=== PATIENT | male | born 1960 | race Caucasian/White ===

== ENCOUNTER 2023-10-26 22:40 | Inpatient (IN) | payer MEDICARE, OTHER, SELFPAY ==
[2023-10-26 20:24] VITALS: BP 110/70
[2023-10-26 20:46] LABS: % Basophils 0.2 % (0-2); % Eosinophils 0.2 % (0-6); % Immature Granulocytes 0.6 % (0-0.5); % Lymphocytes 16.5 % (20.5-51.1); % Monocytes 7.9 % (1.7-9.3); % Neutrophils 74.6 % (42.2-75.2); Absolute Immature Granulocytes 0.1 10^3/uL (0-0.05); Absolute Lymphocytes 1.6 10^3/uL (1.2-3.4); Absolute Monocytes 0.8 10^3/uL (0.1-0.6); Hematocrit 27.2 % (39.0-52.0); Hemoglobin 9.7 g/dL (13.0-18.0); Mean Corp Hgb Conc. 35.7 g/dL (33.0-37.0); Mean Corpuscular Hgb 31.9 pg (27.0-31.0); Mean Corpuscular Volume 89.5 fL (80.0-94.0); Mean Platelet Volume 10.6 fL (7.4-10.4); Nucleated Red Blood Cells % 0 % (-); Platelet Count 204 10^3/uL (130-400); Red Blood Cell Count 3.04 10^6/uL (4.70-6.10); Red Cell Dist. Width 12.5 % (11.5-14.5); White Blood Cell Count 9.4 10^3/uL (4.8-10.8)
[2023-10-26 21:22] LABS: ALT (SGPT) 37 U/L (0-50); AST (SGOT) 51 U/L (17-59); Albumin 3.7 g/dl (3.5-5.0); Alcohol < 10 mg/dl; Alkaline Phosphatase 68 U/L (38-126); Blood Urea Nitrogen 20 mg/dl (9-20); Carbon Dioxide 27 mmol/L (22-30); Chloride 84 mmol/L (98-107); Glucose 168 mg/dl (70-99); Lipase 145 U/L (23-300); Sodium 116 mmol/L (135-145); Total Bilirubin 0.8 mg/dl (0.2-1.3); Total Protein 6.1 g/dl (6.3-8.2); eGFR > 60.00
[2023-10-26 21:46] VITALS: BP 113/72
[2023-10-26 21:50] VITALS: BMI 19.9
[2023-10-26 22:02] VITALS: BP 88/65
[2023-10-26 22:12] VITALS: BP 126/92
--- NOTE | 2023-10-26 22:16 | EDRN ---
At approx. 2210 this RN was called into the room by the patients visitor. The patient was pale, diaphoretic, and had his back arched. The patient was unresponsive. Dr. Watt called to the bedside and was immediately at the stretcher side. The
patient was placed supine and the patient started to arouse. The patient was placed on 6L N/C. The patient was ST on the monitor at the time of the event. The patients pulse ox is 99% on 6L N/C.
--- NOTE | 2023-10-26 22:19 | HPS.HSE ---
Family Physician
-
Family Physician:
Chief Complaint
-
fall, LOC, N/V
History of Present Illness
63M HX hyponatremia, ETOH use disorder pw N/V last 3 days. Recently he cannot keep the usual beer down.
He had fall last night and hit head, hit Rt elbow and lower back - he reports LOC . He is on on Eliquis
S/p dental implants on 10/22
He drinks ETOH daily
At ER Witnessed brief Sz like activity for x 1 min @ ER described as getting stiff and rollung both eyes up when he sit up with assistance s/p Ativan at ER
Reports vague HX sz
NEG HCT for acute process
Denies dirrhea
Medical History
Past Medical History
Past Medical History: Reports Other
Additional Past Medical History:
Acute kidney injury
Acute postoperative acute blood loss anemia
Essential hypertension
Tobacco abuse disorder
Insomnia
Gastroesophageal reflux disease
Past Surgical History: Reports Other
Additional Past Surgical History:
History of open thrombectomy of right common femoral artery, right posterior tibial artery, and bypass graft 07/10/20
History of Right superficial femoral artery occlusion s/p right fem-popliteal bypass 06/29/20
History of right superficial femoral artery occlusion status post lysis in 2017
Hypokalemia
Social History
Tobacco: Smoker (Smoker (currently at 1/2 ppd))
Alcohol: Daily (3 beers daily, sometimes more))
Personal: Partner
Living: With Family
Family History
Family History: Other (Cancer (Mom-Lung ) and Other (Dad-stroke)
Allergies / Home Medications
Allergies reflects when Allergies were last updated in [facility].
Home Medications with original date entered in [facility]
Allergy/Medication List:
Allergies
Allergy/AdvReac Type Severity Reaction Status Date / Time
pollen extracts Allergy seasonal Verified 11/07/22 16:21
allergies
Home Medications
apixaban 5 mg tablet (Eliquis) 5 mg PO BID Blood clot prevention/tx #60 tabs 09/15/22
atorvastatin 40 mg tablet 40 mg PO QPM #30 tabs 09/15/22
diltiazem HCl 180 mg capsule,24 hr,extended release 180 mg PO DAILY Arrhythmia #30 caps 09/15/22
valsartan 80 mg tablet 80 mg PO BID #60 tabs 09/15/22
acetaminophen 325 mg tablet 325 mg PO Q4HPRN PRN mild pain/CAMPOS/temp> 100.4F 02/05/23
clotrimazole 1 % topical cream 1 applic topical BID 02/05/23
sodium chloride 1,000 mg soluble tablet 1,000 mg PO BID 02/05/23
triamcinolone acetonide-l.s.b. 0.1 % topical cream 1 applic topical BID 02/05/23
cyclobenzaprine 10 mg tablet 5 mg PO HS #30 tabs 02/13/23
Review of Systems
-
Constitutional: Reports No Symptoms
EENT: Reports No Symptoms
Respiratory: Reports No Symptoms
Cardiac: Reports No Symptoms
Abdomen/GI: Reports See HPI
: Reports No Symptoms
Musculoskeletal: Reports No Symptoms
Skin: Reports No Symptoms
Neurological: Reports See HPI
Endocrine: Reports No Symptoms
Hematologic/Lymphatic: Reports No Symptoms
Psych: Reports No Symptoms
Physical Exam
Vital Signs
Vital Signs
Pulse Resp BP Pulse Ox
109 18 113/72 98
10/26/23 21:46 10/26/23 20:24 10/26/23 21:46 10/26/23 20:24
Physical Exam
General: No Apparent Distress, Conversant and Other (unkempt )
HEENT: NormoCephalic, Anicteric and Moist mucous membranes
Respiratory: Clear; No Wheezes, Rales or Rhonchi
Cardiac: S1/S2 and Regular Rhythm; No Bradycardia, Tachycardia or Murmur
GI: Soft, Non Tender and Non Distended
Rectal: Deferred by Provider
Genito-urinary: Deferred by me
Musculoskeletal: Clubbing, No Clubbing, No Cyanosis and No Edema
Skin: Other (Echimoses on Rt elbow )
Neuro: Awake, Alert, AO x 3, Nonfocal/grossly intact and DTR's Intact & Symmetrical
Psych: Calm
Laboratory Results
-
10/26/23 20:38
10/26/23 20:38
Laboratory Results
Total Bilirubin 0.8 mg/dl (0.2-1.3) 10/26/23 20:38
AST 51 U/L (17-59) 10/26/23 20:38
ALT 37 U/L (0-50) 10/26/23 20:38
Alkaline Phosphatase 68 U/L (38-126) 10/26/23 20:38
Lipase 145 U/L (23-300) 10/26/23 20:38
Data Reviewed
-
CT Scan: Report Reviewed by me
Lab Data: Labs Reviewed by me
Old Records: Reviewed
Impression/Plan
-
Reviewed VS: Mild tachycardic 110 borderline hypotension 113/70
Data
nl WCC
Hgb 9.7
Na 116 - prior Na 127- 134
K 3.0
Cl 84
CO2 27
ETOH < 10
EKG report
SINUS TACHYCARDIA
NONSPECIFIC T WAVE ABNORMALITY
ABNORMAL ECG
HCT
1. No CT evidence for acute intracranial hemorrhage, calvarial fracture, or scalp soft tissue hematoma.
2. Moderate bilateral frontal and parietal lobe volume loss.
3. Mild white matter leukoaraiosis in both cerebral hemispheres.
4. 4.7 mm chronic lacunar infarct in the left thalamus.
Last hospitalist admission: 08/26/22 - 09/05/22 Primary Dxs:
- Acute on chronic severe Right foot infection with right foot necrotizing nonhealing ulcer due to peripheral arterial disease
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
- Acute on chronic hyponatremia
ASSESSMENT & PLAN
Severe symptomatic hyponatremia - corrected Na 117 for BG 168
Hypochloremic + severe hypokalemia + Normal renal function
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
- 3% Hypertonic saline @ 30cc/hr per Renal
- s/p IV KCL 40 x 1
- Pending Ur Osm, Ur Na
- FR 40 oz
- on UTILITY AGENT Na Cl tabs
- Trend Na q3hr
- check ortho VSS
- Renal consulted
Witnessed brief Sz like activity for x 1 min @ ER - RN described as getting very stiff and rolling both eyes up when he sit up with assistance - s/p Ativan at ER
Partial complex Sz ?
Reports vague HX sz per patient
Diff etiology- Symptomatic hyponatremia vs acute ETOH WDS
- NEG HCT for acute process
- s/p IV Ativan 1 mg now
- correct Na with 3% Hypertonic saline @ 30cc/hr per Renal
- Neuro consult
At risk for ETOH WDS
ETOH use disorder
- current ETOH < 10 - at risk for ETOH WDS
- Start ETOH WD protocol with
- fall precautions
- Psych consult
Acute N/V DDx: ETOH ralated Gastritis vs. Viral gastritis
- IV PPI
- Anti emetics
Low back pain s/p fall
Ecchymoses on Rt elbow s/p fall
Fall and LOC at home - syncope vs Sz vs Postural hypotension
- XR Lx spine
- XR Rt elbow
- TLM monitor
- fall precaution
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
Essential HTN: cont valsartan/diltiazem
Tobacco abuse disorder: Counseled on smoking cessation
Insomnia: cont melatonin, Benadryl, trazodone
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
HX Right SFA occlusion right fem-popliteal bypass 06/29/20
HX right SFA occlusion status post lysis in 2017
GERD: cont PPI
DVT Px: Eliquis
Code: Full code
IMU
--- NOTE | 2023-10-26 22:23 | EDRN ---
The patient is now awake, alert, and oriented. Seizure pads are in place.
--- NOTE | 2023-10-26 22:23 | ED.GENMED ---
History of Present Illness
General
Chief Complaint: Abdominal Symptoms
Source: patient
Exam Limitations: none
Time Seen by Provider: 10/26/23 21:40
Travel History
Have you had any contact with someone who has COVID-19?: No
Do you have any symptoms of coronavirus? Fever > 100 degrees, chills, cough, shortness of breath, sore throat, loss of taste or smell, muscle aches, or headache?: No
History of Present Illness
History of Present Illness:
Patient not feeling well for days. Nausea vomiting. Struck his head yesterday. Just generally not feeling well. Last drank 3 days ago. Drinks 6 beers a day. Also hit his right lateral ribs complaining of pain at the site
Past History
Past History
ED Past Medical History: GERD, Hypercholesterolemia and Other (PAD)
ED Past Surgical History: Other (vascular surgery RLE)
Social History
Tobacco: Smoker
Alcohol: Daily
Phy Exam
Physical Exam
Physical Exam:
GENERAL: Alert and oriented. Mild hyperventilation. Somewhat agitated.
EYE: Orbits normal.
NECK: Supple, nontender
CARDIAC: Regular rate and rhythm without any obvious murmurs.
LUNGS: Clear breath sounds,normal. Tenderness over the right lateral ribs. No crepitus.
ABDOMEN: Soft, without focal tenderness or distention
NEUROLOGICAL: Alert and oriented , grossly non-focal
SKIN: Warm and dry, multiple areas of ecchymosis to the extremities
MUSCULOSKELETAL: No edema,no deformity.Good color. Right BKA
PSYCH: Normal and appropriate interaction. Anxious
Course
Orders/Labs/Results
Orders:
Orders
10/26/23 20:30
CT Head W/o Iv Contrast Urgent
Comment:
Reason For Exam: fall yesterday, head strike, Loc, on eliquis
10/26/23 20:38
Alcohol Urgent
Complete Blood Count/With Diff Urgent
Comprehensive Metabolic Panel Urgent
Lipase Urgent
Magnesium Urgent
Comment: ADD ON
10/26/23 21:29
Electrocardiogram (*1) Urgent
Reason for Study: Tachycardia
EKG- Treatment ONCE
10/26/23 21:56
Add On- LAB Urgent
Tests Added?: magnesium
10/26/23 22:00
3% Sodium Chloride 250 ml [Sodium Chloride 3%] 250 ml IV ONCE
10/26/23 22:01
Urinalysis Reflex To Culture Urgent
Urine Osmolality Random [Osmolality, Random Urine] Urgent
Urine Sodium Urgent
10/26/23 22:[address] Non Medication Order As Directed
Physician Order: change 3% NSS rate to 20cc/hour
10/26/23 22:08
Potassium Chloride [KCl] 40 meq 0.9% Sodium Chloride 250 ml [Nss] 250 ml IV NOW
10/26/23 22:14
CT Chest/abd/pel Wo Iv Cont Urgent
Reason For Exam: trauma. rib pain. anticoagulated
10/26/23 22:[address] Non Medication Order As Directed
Physician Order: 3%nss to 30/cc/hour
10/26/23 22:23
Lorazepam [Ativan] 1 mg IV NOW STA
10/26/23 22:26
Admit/Transfer Patient As Directed
Co-Sign Provider:
Level of Care: Inpatient admission
Assign to:: IMU- Intermediate Care
Physician / Group: [email or web address]
Diagnosis: symtomatic hyponatremia, Fall, syncope, New onset Sz, at risk for ETOH WDS,
Reason for Hospitalization: symtomatic hyponatremia, Fall, syncope, New onset Sz, at risk for ETOH WDS, N/V
Expected length of stay greater than two midnights?: Yes
ELOS- Estimated Length of Stay in days: 7
I certify the patient meets the requirements for IP care: Yes
10/26/23 22:35
Code Status As Directed
Resuscitation Status: Full Code
Abnormal Lab Results
10/26/23
20:38
RBC 3.04 L 10^6/uL
(4.70-6.10)
Hgb 9.7 L g/dL
(13.0-18.0)
Hct 27.2 L %
(39.0-52.0)
MCH 31.9 H pg
(27.0-31.0)
MPV 10.6 H fL
(7.4-10.4)
Abs Immat Gran (auto) 0.1 H 10^3/uL
(0-0.05)
Absolute Neuts (auto) 7.0 H 10^3/uL
(1.4-6.5)
Absolute Monos (auto) 0.8 H 10^3/uL
(0.1-0.6)
Immature Gran % 0.6 H %
(0-0.5)
Lymphocytes % 16.5 L %
(20.5-51.1)
Sodium 116 L* mmol/L
(135-145)
Potassium 3.0 L mmol/L
(3.5-5.1)
Chloride 84 L mmol/L
(98-107)
Creatinine 0.6 L mg/dL
(0.7-1.3)
Glucose 168 H mg/dl
(70-99)
Total Protein 6.1 L g/dl
(6.3-8.2)
10/26/23 20:38
10/26/23 20:38
Vital Signs
Initial and Last Documented VS:
Initial Vital Signs
Pulse Resp BP Pulse Ox
102 18 110/70 98
10/26/23 20:24 10/26/23 20:24 10/26/23 20:24 10/26/23 20:24
Last Documented Vital Signs
Pulse Resp BP Pulse Ox
107 17 90/56 100
10/27/23 00:15 10/27/23 00:15 10/27/23 00:12 10/27/23 00:15
*Critical Care Note
Total Time (30-74mins, 75-104mins- exclusive of procedures): 40
Update Note
Update Note:
2225.... Patient had a brief seizure. Mildly postictal. Discussed again with nephrology. Increase the hypertonic saline to 30 cc/h. Patient could have a component of alcohol withdrawal we will give a milligram of Ativan. Discussed with
neurology also. CT scans pending for the rib trauma. Doubt acute trauma issue but with anticoagulation will check this off the list
0035... Blood pressure remains mildly low although patient appears improved. Patient aware of nodule and need for follow-up
ED Attending Note
-
Portions of this chart may have been created with voice recognition software.� Occasional wrong word or��sound alike� substitutions may have occurred due to the inherent limitations of voice recognition software.
Discharge Plan
Departure
Patient Disposition: Admit
Date of Disposition: 10/26/23
Time of Disposition: 22:04
Presentation/result/management discussed w/ accepting MD/DO: Hospitalist
Discharge Problem:
Symptomatic hyponatremia, Seizure secondary to hyponatremia/alcoho, Right rib fracture, anemia, Duodenitis, Pneumonitis
Interventions
Interventions:
*Risk Screen - Suicide Last Done: 10/26/23 20:27
*General Assessment Last Done: 10/26/23 20:24
*Neglect/Abuse Screening Last Done: 10/26/23 20:24
ED- Fall Risk Assessment Last Done: 10/26/23 22:02
*ED COVID-19 Vaccine History Last Done: 10/26/23 21:55
LV-Mxdjpk-Lqjaridzcq Assessment Last Done: 10/26/23 23:23
[2023-10-26] MEDS: SODIUM CHLORIDE 3% 250 IV (22:24)
[2023-10-26] MEDS: KCL 270 MEQ IV (22:26)
[2023-10-26 22:30] VITALS: BP 126/92
[2023-10-26] MEDS: ATIVAN 1 MG IV (22:30)
--- NOTE | 2023-10-26 22:31 | EDRN ---
This RN spoke with the patients visitor (Meliza). She stated 'I was helping him sit up and that when he all of a sudden stopped talking.' Dr. Watt notified.
[2023-10-26 22:49] LABS: Magnesium 1.9 mg/dl (1.6-2.3)
[2023-10-26 23:00] VITALS: BP 110/55
[2023-10-27] VITALS (20 sets, daily range): BP systolic 78–125; BP diastolic 49–82; BMI 19.4
[2023-10-27] MEDS: THIAMINE INJECTION 200 MG IV ×4 (02:34→23:42)
[2023-10-27] MEDS: ATIVAN 1 MG IV (02:35)
[2023-10-27] MEDS: NSS (PRESERVATIVE FREE) 0.5 ML IV (02:35)
[2023-10-27 03:24] LABS: Hematocrit 22.3 % (39.0-52.0); Hemoglobin 8.2 g/dL (13.0-18.0); Mean Corp Hgb Conc. 36.8 g/dL (33.0-37.0); Mean Corpuscular Hgb 32.4 pg (27.0-31.0); Mean Corpuscular Volume 88.1 fL (80.0-94.0); Mean Platelet Volume 10.7 fL (7.4-10.4); Platelet Count 190 10^3/uL (130-400); Red Blood Cell Count 2.53 10^6/uL (4.70-6.10); Red Cell Dist. Width 12.6 % (11.5-14.5); White Blood Cell Count 8.5 10^3/uL (4.8-10.8)
[2023-10-27 03:40] LABS: Blood Urea Nitrogen 18 mg/dl (9-20); Calcium 8.5 mg/dl (8.4-10.2); Carbon Dioxide 27 mmol/L (22-30); Chloride 89 mmol/L (98-107); Estimated Creatinine Clearance 91 ml/min; Glucose 133 mg/dl (70-99); Potassium 3.7 mmol/L (3.5-5.1); Sodium 122 mmol/L (135-145); eGFR > 60.00
--- NOTE | 2023-10-27 03:43 | PTCARENOTE ---
Pt received from ED, on stretcher, approx 02:20. Ox3, restless, c/o of lower back pain--some relief with repositioning. SR-Sinus tach, low 100s. Radial pulses palpable. RA, shallow respirations, diminished t/o. C/O intermittent nausea, no episodes
of vomiting. No urine noted at this time. Scattered bruising.
Receiving 3% saline, Na increased from 116 to 122. Per Nephrology, hold 3%. Repeat labs ordered.
[2023-10-27 04:15] LABS: TSH 1.74 uIU/ml (0.47-4.68)
[2023-10-27] MEDS: MORPHINE SULFATE 2 MG IV ×2 (06:01→12:44)
--- NOTE | 2023-10-27 06:37 | W.PN.HOSP.TC ---
Today's Communication/Plan
-
cont MSAS protocol
Hyponatremia mgmt as per Nephro
Pulm Psych eval
follow up MRI head and EEG
hold Eliquis for now pending MRI head results.
Assessment / Plan
Assessment / Plan
Physical Exam
General: No Apparent Distress, Conversant
HEENT: NormoCephalic, Anicteric and Moist mucous membranes
Respiratory: Clear; No Wheezes, Rales or Rhonchi
Cardiac: S1/S2 and Regular Rhythm
GI: Soft, Non Tender and Non Distended
Genito-urinary: [place] condom cath in place
Musculoskeletal: s/p RLE BKA
Skin: Ecchymosis Rt elbow numerous small excoriations upper ext's
Neuro: Awake Alert Conversant
Psych: Calm
Severe symptomatic hyponatremia - corrected Na 117 for BG 168
Hypochloremic + severe hypokalemia + Normal renal function
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
- 3%� Hypertonic saline� @ 30cc/hr per Renal
- Potassium repleted
- Ur Osm, Ur Na noted
- FR� 40 oz
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
- Trend Na q4hr
- monitor ortho VSS
- Renal consult appreciated
Witnessed brief Sz� like activity for x 1 min @ ER - RN� described as getting very stiff and rolling both eyes up when he sit up with assistance - s/p Ativan at ER
Partial complex Sz ?
Reports� vague HX sz per patient
Diff etiology- Symptomatic hyponatremia vs acute ETOH WDS
- NEG HCT for acute process
- resolved with prn IV Ativan
- correct Na� with 3%� Hypertonic saline� @ 30cc/hr per Renal
- Neuro consult appreciated Aspirin 81 mg daily pending MRI results, Last dose of Eliquis 10/26 morning since placed on hold, EEG pending
At risk for ETOH WDS
ETOH use disorder
-MSAS protocol
- fall precautions
- Psych consult requested
Acute N/V� DDx: ETOH ralated� Gastritis vs. Viral gastritis
CT abd/pelvis 2nd portion duodenum inflammation suggestive Peptic Ulcer Disease likely 2/2 alcohol use
-PPI BID started
Low back pain s/p fall
Ecchymoses on Rt elbow s/p fall
Fall and LOC at home - syncope vs Sz vs Postural hypotension
- XR Lx spine appreciated no acute fracture
- XR Rt elbow appreciated no acute fracture
- CT chest appreciated Acute nondisplaced fracture of the right lateral 10th rib
- fall precaution
CT chest appreciated
-2.9 mm solid pulmonary nodule in the right lower lobe, [address] recommended
-�Multiple moderate-sized regions of ground-glass opacity in the left upper and lower lobes and small number of ground-glass opacities in the right lower lobe, unclear significance. Pulm eval requested.
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
� Essential HTN: cont valsartan/diltiazem
� Tobacco abuse disorder: Counseled on smoking cessation
� Insomnia: cont melatonin, Benadryl, trazodone
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
� HX right SFA occlusion status post lysis in 2017
� GERD: cont PPI
DVT Px: Eliquis placed on hold for MRI as per Neuro above, last dose 10/26 AM, depending on MRI results will determine appropriate dvt ppx regimen
Code: Full code
IMU
discussed with patient and his sister Yesy
I spent a total of 60 minutes with the patient or on the floor. More than 50% of this time involved counseling and coordination of care.
Anticipated Discharge: > 48 hours
Subjective/Interval History
-
Date of Service: October 27, 2023
No acute distress resting comfortably in bed. Reports chronic back pain improved from last night. Denies headache nausea.
Objective Data
-
Labs:
Laboratory Results
10/26/23 10/27/23 10/27/23
20:38 03:01 06:18
WBC 9.4 8.5
Hgb 9.7 L 8.2 L
Hct 27.2 L 22.3 L
Plt Count 204 190
Sodium 116 L* 122 L Pending
Potassium 3.0 L 3.7 Pending
Chloride 84 L 89 L Pending
Carbon Dioxide 27 27 Pending
BUN 20 18 Pending
Creatinine 0.6 L 0.5 L Pending
Glucose 168 H 133 H Pending
Calcium 9.0 8.5 Pending
Total Bilirubin 0.8
AST 51
ALT 37
Alkaline Phosphatase 68
10/27/23 10/27/23 10/27/23
10:00 14:00 18:00
WBC
Hgb
Hct
Plt Count
Sodium Pending Pending Pending
Potassium Pending Pending Pending
Chloride Pending Pending Pending
Carbon Dioxide Pending Pending Pending
BUN Pending Pending Pending
Creatinine Pending Pending Pending
Glucose Pending Pending Pending
Calcium Pending Pending Pending
Total Bilirubin
AST
ALT
Alkaline Phosphatase
10/27/23
22:00
WBC
Hgb
Hct
Plt Count
Sodium Pending
Potassium Pending
Chloride Pending
Carbon Dioxide Pending
BUN Pending
Creatinine Pending
Glucose Pending
Calcium Pending
Total Bilirubin
AST
ALT
Alkaline Phosphatase
Vital Signs:
Vital Signs
Pulse Resp BP Pulse Ox
90 18 105/73 95
10/27/23 05:30 10/27/23 05:30 10/27/23 05:00 10/27/23 05:28
--- NOTE | 2023-10-27 06:56 | CON.NEURO ---
Consultation
Order
Date of Consultation: 10/27/23
Reason for Consult: Seizure
CC: hiccup
HPI: This is a 63-year-old RH man who presented to [facility] on October 26, 2023 with malaise. Mr. Cash was witnessed to have 1 minute seizure described as getting stiff and rolling both eyes up when he sit up with assistance. ER
MAR: Lorazepam 10/26/23 22:23.
According to the patient he sustained an unwitnessed fall with no loss of consciousness after he lost his balance following getting up from seated position on 10/25/2023. He has been off Eliquis due to dental surgery that he had a week ago. No
reports of headaches, history of prior seizures.
ER VS:110/70-85/63, 102-109, afebrile; BMI-19.
EKG-sinus tachy, QTc Int : 484 ms.
PDMP:none
Labs: Sodium�116, glucose�168, hemoglobin 9.7�8.2, normal WBCs, ETOH�negative, Mg 1.9
CT head-moderate bilateral frontal and parietal lobe volume loss; mild white matter leukoaraiosis in both cerebral hemispheres; 4.7 mm chronic lacunar infarct in the left thalamus.
CT chest/abdomen-multiple moderate-sized regions of ground-glass opacity in the left upper and lower lobes and small number of ground-glass opacities in the right lower lobe. Acute nondisplaced fracture of the right lateral 10th rib.
PMH: PA A-Fib, RLL pulmonary nodule, PAD, ADH, DLP, HTN, BPH, GERD, PUD, hepatic steatosis, nicotine/ETOH addiction
PSH:femoral popliteal bypass, right transtibial amputation;bilateral inguinal hernia repair
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
All: NKDA
ROS:Constitutional: Positive for fever
HENT: Negative for ear pain, hearing loss, tinnitus and trouble swallowing.
Eyes: Negative. Negative for photophobia, pain and visual disturbance.
Respiratory: Negative for cough, choking and shortness of breath.
Cardiovascular: Negative for chest pain, palpitations and leg swelling.
Gastrointestinal: Positive for hiccups
Endocrine: Negative. Negative for cold intolerance.
Genitourinary: Positive for urinary urgency
Musculoskeletal: Positive for right sided rib pain
Skin: Negative for rash.
Allergic/Immunologic: Negative. Negative for immunocompromised state.
Neurological: Negative for dizziness, tremors, seizures, speech difficulty, numbness and headaches.
Psychiatric/Behavioral: Negative for behavioral problems, confusion and hallucinations.
General: Well developed. In moderate distress due to rib pain and constant hiccups
Cardio: Regular rate and rhythm without murmur. Extremities are without cyanosis or edema.
Neuro:
Mental Status: Alert, oriented to person, place, and date. Normal attention and recall. Good fund of knowledge. Follows complex requests across the midline. Comprehension, naming, and repetition intact.
Cranial Nerves: Pupils are equally round and reactive to light. EOMs full. Visual gregory full to confrontation. No ptosis. No nystagmus. V1-V3 intact to light touch and pinprick bilaterally, symmetric. Face symmetric. Normal hearing AU. The
palate elevated well. SCMs and traps 5/5. Tongue midline. No dysarthria.
Motor: Normal bulk and tone. No pronator or arm drift. Strength 5/5 throughout(R BKA)
Reflexes: Limited exam due to patient's distress
Sensory: Limited exam due to patient's distress
Coordination: No dysmetria or tremor.
Gait: deferred
Assessment and Plan:
I. Symptomatic seizure
II. Severe hyponatremia
III. Chronic left thalamic infarcts
IV. ETOH addiction
V. PA AFib
. Hiccups
VII. Recent dental surgery
-Seizure precautions
-CIWA protocol
-ASA 81mg QD. Plan to restart Eliquis pending brain MRI results
-Baclofen 5-10 mg TID for hiccups if physical maneuvers as Valsalva maneuver, breath holding for 5 to 10 seconds, pressing gently but firmly on the eyeballs, sipping on or gargling with very cold water are not beneficial
-Avoid cerebral hypoperfusion
-Please check CK, urinalysis, urine tox, TFTs, ESR, CRP, blood cx
-DVT prophylaxis
I personally reviewed all radiology and labs along with past medical records pertinent to current medical problems. Total time spent in patient care is 60 minutes.
Thank you for allowing us to participate in the care of this patient. We will continue to follow. Please do not hesitate to contact us with any questions or concerns.
Subjective/Objective
Subjective Data
Date of Service: October 27, 2023
Objective Data
Vital Signs
Pulse Resp BP Pulse Ox
90 18 105/73 95
10/27/23 05:30 10/27/23 05:30 10/27/23 05:00 10/27/23 05:28
Lab Results
10/27/23 03:01
Sodium 122 mmol/L (135-145) L 10/27/23 03:01
Potassium 3.7 mmol/L (3.5-5.1) 10/27/23 03:01
BUN 18 mg/dl (9-20) 10/27/23 03:01
Glucose 133 mg/dl (70-99) H 10/27/23 03:01
Calcium 8.5 mg/dl (8.4-10.2) 10/27/23 03:01
Patient Allergies
pollen extracts Allergy (Verified 11/07/22 16:21)
seasonal allergies
Medications
-
Active Medications
Generic Name Dose Route Start Last Admin
Trade Name Freq PRN Reason Stop Dose Admin
Amoxicillin/Clavulanate Potassium 1 tablet 10/27/23 08:00
Amoxicillin (875 Mg)/Clavulanate (125 Mg) Tablet PO
Q12 CRISTIAN
Apixaban 5 mg 10/27/23 08:00
Apixaban (Eliquis) 5 Mg Tablet PO 11/24/23 07:59
BID CRISTIAN
Atorvastatin Calcium 40 mg 10/27/23 18:00
Atorvastatin (Lipitor) 40 Mg Tablet PO 11/24/23 17:59
QPM CRISTIAN
Diltiazem HCl 180 mg 10/27/23 08:00
Diltiazem 180 Mg Extended Release (24 H) Capsule PO 11/24/23 07:59
DAILY CRISTIAN
Folic Acid 1 mg 10/27/23 08:00
Folic Acid 1 Mg Tablet PO 11/24/23 07:59
DAILY CRISTIAN
Folic Acid 1 mg/ Sodium 50.2 mls @ 200.8 mls/hr 10/27/23 01:35
Chloride IV 11/24/23 01:34
DAILYPRN PRN
if NPO
Lorazepam 1 mg 10/27/23 01:35
Lorazepam 1 Mg Tablet PO 11/24/23 01:34
Q2HPRN PRN
MSAS 5-7
Lorazepam 1 mg 10/27/23 01:35 10/27/23 02:35
Lorazepam 2 Mg/Ml Vial IV 11/24/23 01:34 1 mg
Q1HPRN PRN Administration
MSAS 8-11
Lorazepam 2 mg 10/27/23 01:35
Lorazepam 2 Mg/Ml Vial IV 11/24/23 01:34
Q1HPRN PRN
MSAS > 11
Morphine Sulfate 2 mg 10/27/23 05:40 10/27/23 06:01
Morphine 2 Mg/Ml Syringe IV 11/10/23 05:39 2 mg
Q4HPRN PRN Administration
severe pain
Sodium Chloride 0 flush 10/27/23 01:00
Sodium Chloride 0.9% (Flush) Syringe IV 11/24/23 00:59
PER PROTOCOL CRISTIAN
Sodium Chloride 1 gram 10/27/23 08:00
Sodium Chloride 1 Gram Tablet PO 11/24/23 07:59
BID CRISTIAN
Sodium Chloride 0 ml 10/27/23 01:35 10/27/23 02:35
Sodium Chloride 0.9% (Preservative Free) 10 Ml Vial IV 11/24/23 01:34 0.5 ml
PRN PRN Administration
To dilute IV Ativan
Protocol
Thiamine HCl 200 mg 10/27/23 01:35 10/27/23 02:34
Thiamine (100 Mg/Ml) 2 Ml Vial IV 10/29/23 16:01 200 mg
Q8 CRISTIAN Administration
Thiamine HCl 100 mg 10/30/23 08:00
Thiamine 100 Mg Tablet PO 11/27/23 07:59
BID CRISTIAN
Valsartan 80 mg 10/27/23 08:00
Valsartan 80 Mg Tablet PO 11/24/23 07:59
BID CRISTIAN
Home Medications
Medication Instructions Recorded
apixaban 5 mg tablet (Eliquis) 5 mg PO BID Blood clot 09/15/22
prevention/tx #60 tabs
atorvastatin 40 mg tablet 40 mg PO QPM #30 tabs 09/15/22
diltiazem HCl 180 mg capsule,24 180 mg PO DAILY Arrhythmia #30 caps 09/15/22
hr,extended release
valsartan 80 mg tablet 80 mg PO BID #60 tabs 09/15/22
acetaminophen 325 mg tablet 325 mg PO Q4HPRN PRN mild 02/05/23
pain/CAMPOS/temp> 100.4F
clotrimazole 1 % topical cream 1 applic topical BID 02/05/23
sodium chloride 1,000 mg soluble 1,000 mg PO BID 02/05/23
tablet
triamcinolone acetonide-l.s.b. 0.1 1 applic topical BID 02/05/23
% topical cream
cyclobenzaprine 10 mg tablet 5 mg PO HS #30 tabs 02/13/23
amoxicillin 875 mg-potassium 1 tab PO BID 10/27/23
clavulanate 125 mg tablet
Vital Signs and Labs
-
Vital Signs and Labs:
Vital Signs
Pulse Resp BP Pulse Ox
90 18 105/73 95
10/27/23 05:30 10/27/23 05:30 10/27/23 05:00 10/27/23 05:28
Lab Results
10/27/23 03:01
Sodium 124 mmol/L (135-145) L 10/27/23 06:18
Potassium 3.7 mmol/L (3.5-5.1) 10/27/23 06:18
BUN 16 mg/dl (9-20) 10/27/23 06:18
Glucose 121 mg/dl (70-99) H 10/27/23 06:18
Calcium 8.9 mg/dl (8.4-10.2) 10/27/23 06:18
Home Medications
-
Home Medications
apixaban 5 mg tablet (Eliquis) 5 mg PO BID Blood clot prevention/tx #60 tabs 09/15/22
atorvastatin 40 mg tablet 40 mg PO QPM #30 tabs 09/15/22
diltiazem HCl 180 mg capsule,24 hr,extended release 180 mg PO DAILY Arrhythmia #30 caps 09/15/22
valsartan 80 mg tablet 80 mg PO BID #60 tabs 09/15/22
acetaminophen 325 mg tablet 325 mg PO Q4HPRN PRN mild pain/CAMPOS/temp> 100.4F 02/05/23
clotrimazole 1 % topical cream 1 applic topical BID 02/05/23
sodium chloride 1,000 mg soluble tablet 1,000 mg PO BID 02/05/23
triamcinolone acetonide-l.s.b. 0.1 % topical cream 1 applic topical BID 02/05/23
cyclobenzaprine 10 mg tablet 5 mg PO HS #30 tabs 02/13/23
amoxicillin 875 mg-potassium clavulanate 125 mg tablet 1 tab PO BID 10/27/23
Medications
-
Medications:
Generic Name Dose Route Start Last Admin
Trade Name Freq PRN Reason Stop Dose Admin
Amoxicillin/Clavulanate Potassium 1 tablet 10/27/23 08:00
Amoxicillin (875 Mg)/Clavulanate (125 Mg) Tablet PO
Q12 CRISTIAN
Apixaban 5 mg 10/27/23 08:00
Apixaban (Eliquis) 5 Mg Tablet PO 11/24/23 07:59
BID CRISTIAN
Atorvastatin Calcium 40 mg 10/27/23 18:00
Atorvastatin (Lipitor) 40 Mg Tablet PO 11/24/23 17:59
QPM CRISTIAN
Diltiazem HCl 180 mg 10/27/23 08:00
Diltiazem 180 Mg Extended Release (24 H) Capsule PO 11/24/23 07:59
DAILY CRISTIAN
Folic Acid 1 mg 10/27/23 08:00
Folic Acid 1 Mg Tablet PO 11/24/23 07:59
DAILY CRISTIAN
Folic Acid 1 mg/ Sodium 50.2 mls @ 200.8 mls/hr 10/27/23 01:35
Chloride IV 11/24/23 01:34
DAILYPRN PRN
if NPO
Lorazepam 1 mg 10/27/23 01:35
Lorazepam 1 Mg Tablet PO 11/24/23 01:34
Q2HPRN PRN
MSAS 5-7
Lorazepam 1 mg 10/27/23 01:35 10/27/23 02:35
Lorazepam 2 Mg/Ml Vial IV 11/24/23 01:34 1 mg
Q1HPRN PRN Administration
MSAS 8-11
Lorazepam 2 mg 10/27/23 01:35
Lorazepam 2 Mg/Ml Vial IV 11/24/23 01:34
Q1HPRN PRN
MSAS > 11
Morphine Sulfate 2 mg 10/27/23 05:40 10/27/23 06:01
Morphine 2 Mg/Ml Syringe IV 11/10/23 05:39 2 mg
Q4HPRN PRN Administration
severe pain
Sodium Chloride 0 flush 10/27/23 01:00
Sodium Chloride 0.9% (Flush) Syringe IV 11/24/23 00:59
PER PROTOCOL CRISTIAN
Sodium Chloride 1 gram 10/27/23 08:00
Sodium Chloride 1 Gram Tablet PO 11/24/23 07:59
BID CRISTIAN
Sodium Chloride 0 ml 10/27/23 01:35 10/27/23 02:35
Sodium Chloride 0.9% (Preservative Free) 10 Ml Vial IV 11/24/23 01:34 0.5 ml
PRN PRN Administration
To dilute IV Ativan
Protocol
Thiamine HCl 200 mg 10/27/23 01:35 10/27/23 02:34
Thiamine (100 Mg/Ml) 2 Ml Vial IV 10/29/23 16:01 200 mg
Q8 CRISTIAN Administration
Thiamine HCl 100 mg 10/30/23 08:00
Thiamine 100 Mg Tablet PO 11/27/23 07:59
BID CRISTIAN
Valsartan 80 mg 10/27/23 08:00
Valsartan 80 Mg Tablet PO 11/24/23 07:59
BID CRISTIAN
[2023-10-27 07:03] LABS: Blood Urea Nitrogen 16 mg/dl (9-20); Calcium 8.9 mg/dl (8.4-10.2); Carbon Dioxide 26 mmol/L (22-30); Chloride 90 mmol/L (98-107); Estimated Creatinine Clearance 91 ml/min; Glucose 121 mg/dl (70-99); Sodium 124 mmol/L (135-145); eGFR > 60.00
[2023-10-27 07:08] LABS: Potassium 3.7 mmol/L (3.5-5.1)
[2023-10-27] MEDS: AUGMENTIN 875 MG/125 MG 1 TABLET PO ×2 (07:59→20:23)
[2023-10-27] MEDS: ELIQUIS 5 MG PO ×2 (07:59→20:24)
[2023-10-27] MEDS: SODIUM CHLORIDE 1 GRAM PO ×2 (07:59→20:15)
[2023-10-27] MEDS: FOLVITE 1 MG PO (07:59)
--- NOTE | 2023-10-27 08:15 | PTCARENOTE ---
Received pt @ change of shift. Awakens to verbal stimuli, intermittently drowsy/restless. Ox2, requires reorientation to time. SR/ST on monitor SpO2 97% on RA, shallow breaths/poor effort. +BS, denies n/v; poor cristian, refused breakfast. Grossly int
of urine overnight, hao care provided and #25 CC placed. R HAILEE, reports prosthesis is @ home. UE w scattered ecchymosis and scabbing. #20 FA and #wrist patent, dressing c/d/i. Assisted w repositioning in bed. Bed alarm active. Instructed on how
to report care concerns and call moss in reach.
--- NOTE | 2023-10-27 08:18 | W.CON.NEPH ---
Consultation
-
Date/Time Consultation Requested: 10/26/2023 9:30 PM
Date/Time Consultation Performed: 10/27/2023 8:15 AM
Requesting Provider: Franklin
Performing Provider: melisa
Reason for Consultation: Hyponatremia
Medical History
-
Chief Complaint: Hyponatremia
History of Present Illness:
63M HX hyponatremia maintained on sodium chloride, ETOH use disorder presented with N/V last 3 days. He has a longstanding history of alcohol abuse and drinks daily. he has a history of chronic atrial fibrillation maintained on Eliquis. He is
maintained on diltiazem and losartan in the setting of his hypertension. He has a history of ongoing right foot infection in the setting of his peripheral vascular disease with nonhealing right foot necrotizing ulceration. He recently could not
keep the usual beer down.
He had a fall last night and hit head, hit Rt� elbow and lower� back� - he reports LOC . During his emergency room visit last evening there was a witnessed brief seizure with grand mall activity noted. He was administered Ativan in the emergency
room. He was given 3% saline at 30 cc/h last evening at the direction of nephrology. nephrology was consulted for hyponatremia as his serum sodium level on presentation was 116. He is now being seen in the intensive care unit nephrology was
consulted for his hyponatremia in association with seizure.
Past Medical History
History of hyponatremia
History of profound peripheral vascular disease with ongoing right foot ischemic ulceration
History of open thrombectomy of right common femoral artery with right posterior tibial artery bypass grafting June 2020
History of right superficial femoral artery occlusion status post femoropopliteal bypass in June 2000
History of hypertension
History of GERD
History of atrial fibrillation on chronic Eliquis
History of right BKA
History of dyslipidemia
History of daily alcohol abuse
Social History
Positive for tobacco and alcohol abuse
Family History
no ckd
Allergies / Home Medications
Allergy/AdvReac Type Severity Reaction Status Date / Time
pollen extracts Allergy seasonal Verified 11/07/22 16:21
allergies
Medication Instructions Recorded Confirmed Type
apixaban 5 mg tablet (Eliquis) 5 mg PO BID Blood clot 09/15/22 10/26/23 Rx
prevention/tx #60 tabs
atorvastatin 40 mg tablet 40 mg PO QPM #30 tabs 09/15/22 10/26/23 Rx
diltiazem HCl 180 mg capsule,24 180 mg PO DAILY Arrhythmia #30 caps 09/15/22 10/26/23 Rx
hr,extended release
valsartan 80 mg tablet 80 mg PO BID #60 tabs 09/15/22 10/26/23 Rx
acetaminophen 325 mg tablet 325 mg PO Q4HPRN PRN mild 02/05/23 10/26/23 History
pain/CAMPOS/temp> 100.4F
clotrimazole 1 % topical cream 1 applic topical BID 02/05/23 10/26/23 History
sodium chloride 1,000 mg soluble 1,000 mg PO BID 02/05/23 10/26/23 History
tablet
triamcinolone acetonide-l.s.b. 0.1 1 applic topical BID 02/05/23 10/26/23 History
% topical cream
cyclobenzaprine 10 mg tablet 5 mg PO HS #30 tabs 02/13/23 10/26/23 Rx
amoxicillin 875 mg-potassium 1 tab PO BID 10/27/23 10/27/23 History
clavulanate 125 mg tablet
Review of Systems
-
History Source: Patient
All other systems: Negative unless noted
Abdomen/GI: Nausea and Vomiting
Musculoskeletal: Other (Rib pain, right BKA)
Skin: No Symptoms
Physical Exam
Vital Signs
Vital Signs
Temp Pulse Resp BP Pulse Ox
97.2 F 90 18 105/73 95
10/27/23 03:30 10/27/23 05:30 10/27/23 05:30 10/27/23 05:00 10/27/23 05:28
Lab Results
10/27/23 03:01
10/27/23 03:01
WBC 8.5 10^3/uL (4.8-10.8) 10/27/23 03:01
RBC 2.53 10^6/uL (4.70-6.10) L 10/27/23 03:01
Hgb 8.2 g/dL (13.0-18.0) L 10/27/23 03:01
Hct 22.3 % (39.0-52.0) L 10/27/23 03:01
Plt Count 190 10^3/uL (130-400) 10/27/23 03:01
eGFR > 60.00 10/27/23 06:18
Albumin 3.7 g/dl (3.5-5.0) 10/26/23 20:38
Physical Exam
General: AOx3
HEENT: PERRL, EOMI, Anicteric, Conjunctivae Clear, Ear/Nose Intact, Hearing Normal and Oropharynx Clear/Moist
Respiratory: Clear
Cardiac: S1/S2 and Regular Rate/Rhythm (Tachycardia)
Breast: Deferred by me
Abdomen: Soft, Nontender, Nondistended and Normal Bowel Sounds
Rectal: Deferred by Provider
Musculoskeletal: No Clubbing, No Cyanosis and No Edema
Skin: No Rash
Neuro: Nonfocal/Grossly Intact
Hematologic/Lymphatic: No Cervical Lymphadenopathy, No Submandibular Lymphadenopathy and No Supraclavicular Lymphadenopathy
Psych: Appropriate
Assessment/Plan
-
Impression:
Symptomatic hyponatremia with seizure
History of atrial fibrillation
History of profound peripheral vascular disease
History of hypertension
History of hypokalemia
Status post fall with subsequent nondisplaced fracture of right lateral 10th rib
Anemia
History of right BKA
Plan:
-Sodium rise from 116-124 status post 3%
-Holding antihypertensives in setting of hypotension
-Fluid restriction 1200cc to continue
-can provide midodrine for hypotension if needed, no IVFs for now given variable sodium levels
-Status post 3% administered, follow electrolytes every 4 hours
Data Reviewed
-
Radiology: Other (EKG personally reviewed sinus tachycardic rhythm 103 beats per minute)
CT Scan: Report Reviewed by me (CAT scan report of abdomen and pelvis reviewed no hydronephrosis)
Old Records: Reviewed (Old records reviewed from date 02/07/2023 sodium 131)
[2023-10-27 08:59] LABS: Creatine Phosphokinase 36 U/L (55-170)
[2023-10-27 09:04] LABS: Erythrocyte Sed Rate 77 mm/hour (0-20)
[2023-10-27 09:37] LABS: TSH Reflex To Free T4 2.22 uIU/ml (0.47-4.68)
[2023-10-27] MEDS: DIOVAN 80 MG PO ×2 (10:37→20:15)
[2023-10-27] MEDS: CARDIZEM CD 180 MG PO (10:37)
[2023-10-27] MEDS: PROTONIX 40 MG PO ×2 (10:37→20:15)
[2023-10-27 11:16] LABS: Blood Urea Nitrogen 12 mg/dl (9-20); Calcium 7.9 mg/dl (8.4-10.2); Carbon Dioxide 25 mmol/L (22-30); Chloride 95 mmol/L (98-107); Estimated Creatinine Clearance 91 ml/min; Glucose 92 mg/dl (70-99); Potassium 3.4 mmol/L (3.5-5.1); Sodium 121 mmol/L (135-145); eGFR > 60.00
[2023-10-27 11:19] LABS: Urine Albumin Negative (Neg - Trace); Urine Bilirubin Negative (Negative); Urine Character Clear (Clear); Urine Color Yellow; Urine Glucose Negative (Negative); Urine Ketone Negative (Negative); Urine Leukocyte Negative (Negative); Urine Nitrite Negative (Negative); Urine Occult Blood Negative (Negative); Urine Urobilinogen Negative (Neg - 1+)
[2023-10-27 11:37] LABS: Osmolality Urine 599 mOsm/kg (300-900)
[2023-10-27 11:39] LABS: Amphetamines Negative (Negative); Barbiturates Negative (Negative); Benzodiazepines Positive (Negative); Buprenorphine Negative (Negative); Cocaine Negative (Negative); Marijuana Positive (Negative); Methadone Negative (Negative); Methamphetamines Negative (Negative); Opiates Positive (Negative); Phencyclidine Negative (Negative); Tricyclic Antidepressants Negative (Negative)
--- NOTE | 2023-10-27 11:43 | CON.PUL ---
Consultation
Consultation Request
Date/Time Consultation Requested: 10/27/2023-10 AM
Date/Time Consultation Performed: 10/27/2023-11:45 AM
Requesting Provider: Hospitalist
Performing Provider: Dr. Hahn
Reason for Consultation: Abnormal CT
Medical History
-
Chief Complaint: Abnormal CT chest
History of Present Illness:
63-year-old actively smoking male with alcohol use disorder, history of hyponatremia, hypertension, insomnia, GERD, presented with nausea and vomiting, hyponatremia and witnessed brief seizure-pulmonary consulted for abnormal CT chest 10/27/2023. He
does not complain of any shortness of breath at rest, wheezing, cough, recent fevers, chills, chest congestion, admits to some abdominal pain but no leg weakness or new swelling. Did not report any sick contacts.
Past Medical History
Past Medical History: None (Alcohol use disorder. History of hyponatremia. History of PARIS. Hypertension. Tobacco abuse disorder. Insomnia. GERD.)
Past Surgical History: None (Thrombectomy right common femoral artery, right posterior tibial artery and bypass graft 07/10/2020. Right superficial femoral artery occlusion status post femoropopliteal bypass 06/29/2020. Right superficial femoral
artery occlusion status post lysis 2016.)
Social History
Tobacco: Smoker (Half a pack a day)
Alcohol: Daily
Drug: None
Personal: Partner
Living: With Family
Occupational Exposures: No known asbestos exposure
Environmental Exposures: No known tuberculosis exposure
Family History
Family History: Other (Mother-lung cancer. Father-stroke)
Allergies / Home Medications
Allergies
Allergy/AdvReac Type Severity Reaction Status Date / Time
pollen extracts Allergy seasonal Verified 11/07/22 16:21
allergies
Home Medications
Medication Instructions Recorded Confirmed Last Taken Type
apixaban 5 mg tablet (Eliquis) 5 mg PO BID Blood clot 09/15/22 10/26/23 Unknown Rx
prevention/tx #60 tabs
atorvastatin 40 mg tablet 40 mg PO QPM #30 tabs 09/15/22 10/26/23 Unknown Rx
diltiazem HCl 180 mg capsule,24 180 mg PO DAILY Arrhythmia #30 caps 09/15/22 10/26/23 Unknown Rx
hr,extended release
valsartan 80 mg tablet 80 mg PO BID #60 tabs 09/15/22 10/26/23 Unknown Rx
acetaminophen 325 mg tablet 325 mg PO Q4HPRN PRN mild 02/05/23 10/26/23 Unknown History
pain/CAMPOS/temp> 100.4F
clotrimazole 1 % topical cream 1 applic topical BID Skin Issues 02/05/23 10/26/23 Unknown History
sodium chloride 1,000 mg soluble 1,000 mg PO BID Electrolyte 02/05/23 10/26/23 Unknown History
tablet Repletion
triamcinolone acetonide-l.s.b. 0.1 1 applic topical BID Skin Issues 02/05/23 10/26/23 Unknown History
% topical cream
cyclobenzaprine 10 mg tablet 5 mg PO HS #30 tabs 02/13/23 10/26/23 Unknown Rx
amoxicillin 875 mg-potassium 1 tab PO BID Infection 10/27/23 10/27/23 Unknown History
clavulanate 125 mg tablet
Review of Systems
-
Unable to Obtain full review of systems at this time due to: Other (Per HPI)
Vitals / Labs / Diagnostic Testing
Vital Signs
Temp Pulse Resp BP Pulse Ox
97.9 F 88 20 119/63 98
10/27/23 08:00 10/27/23 11:00 10/27/23 11:00 10/27/23 11:00 10/27/23 11:31
Lab Data
10/27/23 03:01
Diagnostic Testing:
Physical Exam
-
Exam:
Well-nourished and well-developed in no apparent distress
HEENT-atraumatic, normocephalic
Neck-supple, no JVD, no bruit
Heart-regular rate and rhythm-no murmurs, rubs or gallops
Chest-clear to auscultation, no wheezes, crackles
Back-no tenderness
Abdomen-soft, nontender, nondistended, no hepatosplenomegaly
Extremities-no cyanosis, clubbing, edema and good peripheral pulses
Integument-intact, no rashes, lesions or ecchymosis
Neurology-alert and oriented, nonfocal motor and sensory exam
Assessment
-
63-year-old actively smoking male with alcohol use disorder, history of hyponatremia, hypertension, insomnia, GERD, presented with nausea and vomiting, hyponatremia and witnessed brief seizure-pulmonary consulted for abnormal CT chest 10/27/2023.
Assessment
Severe symptomatic hyponatremia-serum sodium 116
Hypokalemia
Witnessed brief seizure
Alcohol use disorder at risk for withdrawal
Acute nausea and vomiting
Pulmonary nodule-2.9 cm right lower lobe incidentally noted on CT chest
Rounded groundglass opacifications left greater than right more basilar and peripheral on CT chest
[id number] 8.2
Hyperglycemia
Urine drug screen positive opiates, benzodiazepines and marijuana
Hiccups
Recent dental procedure-was off Eliquis briefly
Conditions present prior to admission:
Alcohol use disorder.
History of hyponatremia.
History of PARIS.
Hypertension.
Atrial fibrillation on chronic Eliquis
Profound peripheral vascular disease with ongoing right foot ischemia
Tobacco abuse disorder.
Insomnia.
GERD.
Hepatic steatosis
Thrombectomy right common femoral artery, right posterior tibial artery and bypass graft 07/10/2020. Right superficial femoral artery occlusion status post femoropopliteal bypass 06/29/2020.
Right superficial femoral artery occlusion status post lysis 2016.
Family history of lung [id number]
Plan
Radiographs were reviewed and this actively smoking male with newly found groundglass rounded opacifications and incidental pulmonary nodule
Supplemental oxygen if needed-currently on room air
Patient relatively asymptomatic and would not pursue diagnostics beyond rapid covid testing and influenza testing
Isolate if positive and consider antivirals
Nebulizers or inhalers if needed
Aspiration precautions
Follow serum sodium level closely-every 4 hours
3% saline-cautious administration
Goal correction 8 mEq/liter in the first 24 hours
Monitor neurologic status closely-rapid correction can rarely leads to osmotic demyelination syndrome
Nephrology evaluation ongoing-correspondence reviewed
Diuretics and potential use of Samsca per nephrology
Consider checking TSH
Consider checking cortisol
Check urine osmolarity and sodium
Fluid restrict 1200 mL per nephrology
Neurology following
Monitor for seizure recurrence
Consider baclofen if breath-holding for 10 seconds, Valsalva maneuvers, pressing gently but firmly on eyeballs, and sipping on very cold water not beneficial to relieve hiccups
Alcohol withdrawal treatment protocol
Follow MSAS
Thiamine and multivitamin
Ativan as needed
Alcohol cessation counseling
Smoking cessation counseling ongoing
DVT prophylaxis
Early nutrition
Early mobilization
Recommend outpatient pulmonary follow-up with repeat CT chest in 3 months to ensure groundglass opacification resolving and nodular stability is noted-also smoking cessation counseling, PFT, and yearly low-dose lung cancer screening CT especially
with strong family history
Reviewed with nursing
Diagnostic data:
Chest x-ray 11/07/2022-NAD
CT abdomen 05/06/2023-lung bases no nodules or airspace disease, hepatic steatosis
CT head 10/26/[address] evidence for acute intracranial hemorrhage, moderate bilateral frontal parietal lobe volume loss, mild white matter leukoaraiosis in both cerebral hemispheres, 4.7 mm chronic lacunar infarct left thalamus
CT chest/abdomen and pelvis-10/26/2023-acute nondisplaced fracture right lateral 10th rib, multiple moderate size regional groundglass opacifications left upper lobe and lower lobes, 2.9 mm solid pulmonary nodule right lower lobe, moderate
circumferential wall thickening proximal second portion of the duodenum, small spleen
Data Reviewed
-
EKG: Report reviewed by me
Radiology: Report reviewed by me
CT Scan: Image personally visualized and interpreted and Report reviewed by me
Medical Tests (Nuc Med, Echo etc): Report reviewed by me
Labs: Labs reviewed by me
Old Records: Reviewed
Total Time Spent with Patient (in minutes): 55
--- NOTE | 2023-10-27 11:53 | CS.PSYCHR ---
Consult Summary - Psychiatry
-
Pt is 63 yo male admitted with hyponatremia, N/V for 3 days prior to admission. Pt reportedly drinks alcohol daily, was not able to keep beer down for the past few days. Sodium initially 116. Pt had brief witnessed seizure in the ED. Pt was
placed on MSAS protocol. Reviewed with nursing staff, pt has been calm, cooperative with MSAS score 2 to 3 due to heart rate and slight diaphoresis. Pt reported drinking 3 to 6 beers per day. Currently pt sound asleep, lying in bed on his side.
Alcohol level <10 on admission.
PMH: HTN, GERD
SH: lives with family, smokes 1/2 ppd cigs. 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 No further history obtainable
MSE: currently asleep. Noted mostly oriented, with no signs of hallucinations
Imp: Alcohol use, unspecified
Rec: continue on MSAS protocol
will follow peripherally
--- NOTE | 2023-10-27 12:00 | PTCARENOTE ---
BMP resulted Na+ decreased to 121-Nephrology, Dr. Guerra aware. Plan to monitor, next BMP 1400. C/O severe R lower back pain, medicated w prn- see OCT. Pt. assisted w repositioning. electrical mechanical technician to bedside and EEG in progress currently. Safe
environment maintained.
[2023-10-27 12:09] LABS: Urine Sodium 59 mmol/L (30-90)
[2023-10-27 12:10] LABS: Fentanyl, Urine Negative (Negative)
[2023-10-27 12:54] LABS: COVID-19 Antigen Negative (Negative)
--- NOTE | 2023-10-27 13:32 | EEGC.RPT ---
Continuous EEG Report
Recording
Start Date of Data Reviewed: 10/27/23
Done with Video Recording: Yes
Study Sequence: Initiation of Study
Electrocardiogram: Unremarkable
Report
TECHNICAL REMARKS: This is a technically satisfactory eighteen channel record employing 21 disc electrodes applied according to a measured international 10-20 electrode placement system. There were no significant technical difficulties. The study
was done on a Dynis System.
CLINICAL HISTORY: This is a 63 year old man with seizure. This study was requested to look for epileptiform abnormalities.
MEDICATION: Lorazepam once
STUDY DURATION: 21 min, 57 secs
REPORT: At the onset of the EEG, the patient is awake. The background activity consists of 11-12 Hz, persistent, posteriorly dominant, moderate amplitude, symmetric and rhythmic activity that is reactive to eye-opening. Anteriorly, it consists of a
mixture of low voltage indeterminate activity and 20-25 Hz, persistent, low amplitude, symmetric and rhythmic activity. Stepwise intermittent photic stimulation (1-31 Hz) does not induce any abnormalities. Hyperventilation was not performed.
Drowsiness is characterized by low amplitude mixed frequency activity, decreased eye blinking, and muscle artifact. Excessive beta activity was present.
IMPRESSION: This is a normal awake and drowsy EEG. There is no evidence of focal slowing or epileptiform activity. A normal EEG does not rule out epilepsy. If the clinical picture warrants, a sleep-deprived awake and sleep record may be helpful.
--- NOTE | 2023-10-27 13:34 | CM ---
CM is following with discharge planning.
Discussed in Rounds, reviewed pt's chart, met with pt and spoke to pt's sister Yesy.
Pt is a 63 year old male, admitted with primary dx of Severe symptomatic hyponatremia.
Per sister, pt lives alone in a 2SH, no steps, there is a ramp, has no children, has 4 brothers and a sister and they do not live nearby and he cannot rely on their help. Per sister pt has supportive friend Ivonne [phone] and she has been
helping him as needed. per sister all pt's medical decisions goes t her and not to pt's friend Ivonne. Pt uses a walker at home, known to [facility]. No SNF history.
Pt's sister stated that all pt's siblings live out of state and she lives closer than other and she will come to visit the pt tomorrow. pt's sister stated that she is aware that pt is functional alcoholic, a few family members are functional
alcoholics and she and her brothers want the best to the pt. Pt's sister requested to make a referral to [facility].
Pt's sister stated that pt is not Medicaid eligible and she will be looking for caregiver services to pt at home because friend Ivonne works and she cannot help all the time.
PT and OT will evaluate the pt to determine a level of care at discharge.
PCP: Dev Tatum
Pharmacy: [facility].
D/C plan: uncertain at this time: SNF vs VN. PT and OT to evaluate the pt when appropriate.
CM will follow with discharge plan updates as hospitalization progresses
[2023-10-27 14:23] LABS: Blood Urea Nitrogen 12 mg/dl (9-20); Calcium 8.5 mg/dl (8.4-10.2); Carbon Dioxide 24 mmol/L (22-30); Chloride 93 mmol/L (98-107); Estimated Creatinine Clearance 91 ml/min; Glucose 123 mg/dl (70-99); Potassium 3.8 mmol/L (3.5-5.1); Sodium 122 mmol/L (135-145); eGFR > 60.00
[2023-10-27] MEDS: ATIVAN 0.5 MG IV (14:48)
[2023-10-27] MEDS: NSS (PRESERVATIVE FREE) 0.25 ML IV (14:48)
--- NOTE | 2023-10-27 15:08 | PTCARENOTE ---
Addendum entered by Nimco Winston RN 10/27/23 16:25:
Received back to rm [id number], pt reassessed, no changes in previous assessment. Assisted w repositioning, able to turn self in bed. Bed alarm active and call moss w in reach.
Original Note:
Pt. transferred to stretcher and sent to MRI on rn cardiac cath. Awaiting return back to unit.
--- NOTE | 2023-10-27 15:35 | WOUNDNOTE ---
R ARM AND HAND
--- NOTE | 2023-10-27 15:36 | WOUNDNOTE ---
JAEL RN note: Patient admitted with R rib fracture s/p fall, hyponatremia.
See H&P for complete history.
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
Wound Location and type/assessment: Patient admitted with: abrasions to extremities from fall. L elbow with small open wound, scant drainage. R stump from BKA in August is healed. Patient turned by self, L heel intact and sacrum/buttocks are
intact. Bruising on arms and small abrasion to back of head, not open, no drainage.
Appetite:Good.
Pressure redistribution [facility], can use Accumax when transferred to floor.
Plan: Applied adaptic and silicone foam to L arm. Updated nurse Nimco and will sign off unless needed.
[2023-10-27] MEDS: LIPITOR 40 MG PO (17:29)
[2023-10-27 19:49] LABS: Blood Urea Nitrogen 10 mg/dl (9-20); Calcium 7.9 mg/dl (8.4-10.2); Carbon Dioxide 24 mmol/L (22-30); Chloride 93 mmol/L (98-107); Estimated Creatinine Clearance 91 ml/min; Glucose 127 mg/dl (70-99); Potassium 3.2 mmol/L (3.5-5.1); Sodium 121 mmol/L (135-145); eGFR > 60.00
--- NOTE | 2023-10-27 20:00 | PTCARENOTE ---
Received patient in bed, drowsy, arouses to verbal stimuli. AAOx3, moves all extremities, following commands. Normal sinus/sinus tach, 80s-100s. BP stable, 120s/60s. Palpable radial pulses bilaterally, right BKA, weak popliteal pulse on palpation,
weak left pedal pulse on palpation. 97% on room air, lung sounds diminished throughout. No bowel movement prior to admission, #25 condom cath intact draining yellow urine. Bruises/scabs throughout upper extremities. PIVs WNL, patent. Bed alarm on,
call moss within reach, safe environment maintained.
[2023-10-27] MEDS: KCL 40 MEQ PO (20:15)
[2023-10-27 22:52] LABS: Blood Urea Nitrogen 9 mg/dl (9-20); Calcium 7.7 mg/dl (8.4-10.2); Carbon Dioxide 21 mmol/L (22-30); Chloride 96 mmol/L (98-107); Estimated Creatinine Clearance 91 ml/min; Glucose 94 mg/dl (70-99); Potassium 3.5 mmol/L (3.5-5.1); Sodium 121 mmol/L (135-145); eGFR > 60.00
[2023-10-28] VITALS (13 sets, daily range): BP systolic 87–135; BP diastolic 47–79; BMI 19.3
[2023-10-28 03:17] LABS: Blood Urea Nitrogen 9 mg/dl (9-20); Calcium 8.4 mg/dl (8.4-10.2); Carbon Dioxide 21 mmol/L (22-30); Chloride 95 mmol/L (98-107); Estimated Creatinine Clearance 91 ml/min; Glucose 101 mg/dl (70-99); Potassium 4.2 mmol/L (3.5-5.1); Sodium 123 mmol/L (135-145); eGFR > 60.00
[2023-10-28] MEDS: MORPHINE SULFATE 2 MG IV ×5 (03:17→23:14)
[2023-10-28 06:12] LABS: Hemoglobin 7.2 g/dL (13.0-18.0); Mean Corp Hgb Conc. 34.8 g/dL (33.0-37.0); Mean Corpuscular Hgb 31.9 pg (27.0-31.0); Mean Corpuscular Volume 91.6 fL (80.0-94.0); Mean Platelet Volume 10.1 fL (7.4-10.4); Platelet Count 192 10^3/uL (130-400); Red Blood Cell Count 2.26 10^6/uL (4.70-6.10); Red Cell Dist. Width 12.3 % (11.5-14.5); White Blood Cell Count 6.1 10^3/uL (4.8-10.8)
[2023-10-28 06:25] LABS: Blood Urea Nitrogen 8 mg/dl (9-20); Calcium 8.4 mg/dl (8.4-10.2); Carbon Dioxide 19 mmol/L (22-30); Chloride 96 mmol/L (98-107); Estimated Creatinine Clearance 91 ml/min; Glucose 97 mg/dl (70-99); Magnesium 1.9 mg/dl (1.6-2.3); Potassium 3.9 mmol/L (3.5-5.1); Sodium 122 mmol/L (135-145); eGFR > 60.00
--- NOTE | 2023-10-28 07:39 | W.PN.PUL.V3 ---
Today's Communication / Plan
-
3% saline per nephrology
Follow electrolytes closely
Alcohol withdrawal treatment protocol
Transfer to refuarfhq-flrctl-al with pulmonary-sheet rock sander will sign off-call pulmonary if respiratory issues arise
Assessment
-
63-year-old actively smoking male with alcohol use disorder, history of hyponatremia, hypertension, insomnia, GERD, presented with nausea and vomiting, hyponatremia and witnessed brief seizure-pulmonary consulted for abnormal CT chest 10/27/2023.
Assessment
Severe symptomatic hyponatremia-serum sodium 116
Hypokalemia
Witnessed brief seizure
Alcohol use disorder at risk for withdrawal
Acute nausea and vomiting
Pulmonary nodule-2.9 cm right lower lobe incidentally noted on CT chest
Rounded groundglass opacifications left greater than right more basilar and peripheral on CT chest
Lyuero-ndjvhzbdhh-cduygjsjeh 8.2
Hyperglycemia
Urine drug screen positive opiates, benzodiazepines and marijuana
Hiccups
Recent dental procedure-was off Eliquis briefly
Conditions present prior to admission:
Alcohol use disorder.
History of hyponatremia.
History of [place].
Hypertension.
Atrial fibrillation on chronic Eliquis
Profound peripheral vascular disease with ongoing right foot ischemia
Tobacco abuse disorder.
Insomnia.
GERD.
Hepatic steatosis
Thrombectomy right common femoral artery, right posterior tibial artery and bypass graft 07/10/2020. Right superficial femoral artery occlusion status post femoropopliteal bypass 06/29/2020.
Right superficial femoral artery occlusion status post lysis 2016.
Family history of lung wqxuab-[id number]-ufybqc
Plan
Radiographs were reviewed and this actively smoking male with newly found groundglass rounded opacifications and incidental pulmonary nodule
Supplemental oxygen if needed-currently on room air
Isolate if positive and consider antivirals
Nebulizers or inhalers if needed
Aspiration precautions
Follow serum sodium closely for the first 24 hours-can decrease frequency of checks
3% saline-cautious administered
Goal correction 8 mEq/liter in the first 24 hours
Monitor neurologic status closely-rapid correction can rarely leads to osmotic demyelination syndrome
Nephrology evaluation ongoing-correspondence reviewed
TSH normal
Following urine osmolarity and sodium
Fluid restrict 1200 mL per nephrology
Neurology following
Monitor for seizure recurrence
Consider baclofen if breath-holding for 10 seconds, Valsalva maneuvers, pressing gently but firmly on eyeballs, and sipping on very cold water not beneficial to relieve hiccups
Alcohol withdrawal treatment protocol
Follow MSAS
No signs of withdrawal
Thiamine and multivitamin
Ativan if needed
Alcohol cessation counseling
Smoking cessation counseling ongoing
DVT prophylaxis
Early nutrition
Early mobilization
Stable for transfer out of ICU-patient recommended to follow-up with pulmonary-sheet rock sander will sign off-call pulmonary if additional pulmonary questions
Recommend outpatient pulmonary follow-up with repeat CT chest in 3 months to ensure groundglass opacification resolving and nodular stability is noted-also smoking cessation counseling, PFT, and yearly low-dose lung cancer screening CT especially
with strong family history
Reviewed the patient's pertinent medical records including radiographs, microbiology, laboratory evaluations, and discussion with primary team, consultants, pharmacy, nutrition, physical therapy, case management, charge nurse, critical care
nursing, and respiratory therapy.
Diagnostic data:
Chest x-ray 11/07/2022-NAD
CT abdomen 05/06/2023-lung bases no nodules or airspace disease, hepatic steatosis
CT head 10/26/[address] evidence for acute intracranial hemorrhage, moderate bilateral frontal parietal lobe volume loss, mild white matter leukoaraiosis in both cerebral hemispheres, 4.7 mm chronic lacunar infarct left thalamus
CT chest/abdomen and pelvis-10/26/2023-acute nondisplaced fracture right lateral 10th rib, multiple moderate size regional groundglass opacifications left upper lobe and lower lobes, 2.9 mm solid pulmonary nodule right lower lobe, moderate
circumferential wall thickening proximal second portion of the duodenum, small spleen
Subjective Data
-
Date of Service:
Date of Service: October 28, 2023
Chief Complaint: Pulmonary Follow Up and Dyspnea Follow Up
Subjective:
No complaints of worsening shortness of breath, chest pain or abdominal pain
Review of Systems
General: Other (Per HPI)
Objective Data
Data Reviewed
Vital Signs / I&O:
Vital Signs
Temp Pulse Resp BP Pulse Ox
98.6 F 72 16 120/67 98
10/28/23 07:24 10/28/23 06:00 10/28/23 06:00 10/28/23 06:00 10/28/23 06:00
Intake and Output
10/27/23 10/28/23 10/29/23
06:59 06:59 06:59
Output Total 550 / 550
Balance -550 / -550
SaO2: 98
Physical Exam
General: Respiratory Distress (n) and Comfortable
HEENT: Normocephalic, Anicteric and Moist Mucous Membranes
Cardiovascular: Regular Rhythm
Respiratory: Wheeze (n), Crackles (n), Rhonchi, Non-Labored Respirations (n) and Accessory Resp Muscle Use (n)
GI: Soft, Non Distended and Non Tender
Neurology: Awake, Alert and AO x 3
Skin: Warm, Good Color, Cyanosis (n), Jaundice (n) and Rash (n)
Labs/Micro/Reports
Lab Data
10/28/23 05:54
Microbiology
10/27/23 12:21 Nasal Swab Influenza Types A & B (TRACI) - Final
Negative for Influenza A & B, NAAT
Negative results must be combined with clinical observations
and patient history.
Nucleic Acid Amplification test (NAAT)performed on the
Proton Therapy platform.
--- NOTE | 2023-10-28 07:59 | W.PN.HOSP.TC ---
Today's Communication/Plan
-
cont hyponatremia treatment as per Nephro
stable for downgrade to Tele
cont MSAS protocol
pain control
Midline
Monitor H&H
Assessment / Plan
Assessment / Plan
Physical Exam
General: No Apparent Distress, Conversant
HEENT: NormoCephalic, Anicteric and Moist mucous membranes
Respiratory: Clear; No Wheezes, Rales or Rhonchi
Cardiac: S1/S2 and Regular Rhythm
GI: Soft, Non Tender and Non Distended
Genito-urinary: [place] condom cath in place
Musculoskeletal: s/p RLE BKA
Skin: Ecchymosis Rt elbow numerous small excoriations upper ext's
Neuro: Awake Alert Conversant
Psych: Calm
Severe symptomatic hyponatremia - corrected Na 117 for BG 168
Hypochloremic + severe hypokalemia + Normal renal function
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
- 3%� Hypertonic saline� @ 30cc/hr per Renal
- Potassium repleted
- Ur Osm, Ur Na noted
- FR� 40 oz
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
- Trend Na
- monitor ortho VSS
- Renal consult appreciated
Witnessed brief Sz� like activity for x 1 min @ ER - RN� described as getting very stiff and rolling both eyes up when he sit up with assistance - s/p Ativan at ER
Partial complex Sz ?
Reports� vague HX sz per patient
Diff etiology- Symptomatic hyponatremia vs acute ETOH WDS
- NEG HCT for acute process
- resolved with prn IV Ativan
- correct Na� with 3%� Hypertonic saline� @ 30cc/hr per Renal
- Neuro consult appreciated
-MR Brain no acute abn's Eliquis continued
At risk for ETOH WDS
ETOH use disorder
-MSAS protocol
- fall precautions
- Psych consult appreciated
Acute N/V� DDx: ETOH ralated� Gastritis vs. Viral gastritis
CT abd/pelvis 2nd portion duodenum inflammation suggestive Peptic Ulcer Disease likely 2/2 alcohol use
-PPI BID started
Low back pain s/p fall
Ecchymoses on Rt elbow s/p fall
Fall and LOC at home - syncope vs Sz vs Postural hypotension
- XR Lx spine appreciated no acute fracture
- XR Rt elbow appreciated no acute fracture
- CT chest appreciated Acute nondisplaced fracture of the right lateral 10th rib
- fall precaution
-pain control
CT chest appreciated
-2.9 mm solid pulmonary nodule in the right lower lobe, [address] recommended
-�Multiple moderate-sized regions of ground-glass opacity in the left upper and lower lobes and small number of ground-glass opacities in the right lower lobe, unclear significance.
-Pulm eval appreciated
Anemia
-likely dilutional
-no obvious signs of bleeding
-will cont to monitor
-follow up B12 Iron Studies in AM
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
� Essential HTN: cont valsartan/diltiazem
� Tobacco abuse disorder: Counseled on smoking cessation
� Insomnia: cont melatonin, Benadryl, trazodone
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
� HX right SFA occlusion status post lysis in 2017
� GERD: cont PPI
DVT Px: Eliquis
Code: Full code
Stable for downgrade to Tele
discussed with patient and his sister Yesy
I spent a total of 50 minutes with the patient or on the floor. More than 50% of this time involved counseling and coordination of care.
Anticipated Discharge: 24 - 48 hours
Subjective/Interval History
-
Date of Service: October 28, 2023
Reports overall feeling well. Denies headache nausea vomiting. no significant tremors noted.
Objective Data
-
Labs:
Laboratory Results
10/27/23 10/28/23 10/28/23
22:30 02:56 05:54
WBC 6.1
Hgb 7.2 L
Hct 21.0 L
Plt Count 192
Sodium 121 L 123 L 122 L
Potassium 3.5 4.2 3.9
Chloride 96 L 95 L 96 L
Carbon Dioxide 21 L 21 L 19 L
BUN 9 9 8 L
Creatinine 0.4 L 0.5 L 0.5 L
Glucose 94 101 H 97
Calcium 7.7 L 8.4 8.4
10/28/23
10:00
WBC
Hgb
Hct
Plt Count
Sodium Pending
Potassium Pending
Chloride Pending
Carbon Dioxide Pending
BUN Pending
Creatinine Pending
Glucose Pending
Calcium Pending
Vital Signs:
Vital Signs
Temp Pulse Resp BP Pulse Ox
98.6 F 72 16 120/67 98
10/28/23 07:24 10/28/23 06:00 10/28/23 06:00 10/28/23 06:00 10/28/23 07:39
I&O
10/27/23 10/28/23 10/29/23
06:59 06:59 06:59
Output Total 550 / 550
Balance -550 / -550
--- NOTE | 2023-10-28 08:00 | PTCARENOTE ---
Addendum entered by Gisela Cottrell RN 10/28/23 11:38:
Assumed care of patient at 0645.
Patient is AAOX3, slightly withdrawn and frustrated about his overall condition. However, pleasant with staff. Assessment completed and documented in shift assessment. Removed leaking and discomforting IV's x 2. Replaced with L FA IV. To hang 3%
hypertonic saline once medication arrives from pharmacy.
Original Note:
Assumed care of patient at 0645.
Patient is AAOX3, slightly withdrawn and frustrated about his overall condition. However, pleasant with staff. Removed leaking and discomforting IV's x 2. Replaced with L FA IV. To hang 3% hypertonic saline once medication arrives from pharmacy.
--- NOTE | 2023-10-28 08:14 | W.PN.NEPH.PH ---
Today's Communication / Plan
-
3% saline
lytes at noon
Assessment/Plan
-
Impression:
Symptomatic hyponatremia with seizure
History of atrial fibrillation
History of profound peripheral vascular disease
History of hypertension
History of hypokalemia
Status post fall with subsequent nondisplaced fracture of right lateral 10th rib
Anemia
History of right BKA
Plan:
-Sodium rise from 116-122 status post 3% , will repeat 3% saline again today
-Holding antihypertensives in setting of hypotension
-Fluid restriction 1200cc to continue
-hemodynamically more stable
-follow up lytes at 1200
-
-
Date of Service: October 28, 2023
CC / HPI / ROS
-
Chief Complaint:
Hyponatremia
History of Present Illness:
Serum sodium at 122 s/p 3 percent saline
Hemodynamically more stable
Review of Systems:
non oliguric
weights stable
no chest pain or sob
Labs
-
Labs:
WBC 6.1 10^3/uL (4.8-10.8) 10/28/23 05:54
RBC 2.26 10^6/uL (4.70-6.10) L 10/28/23 05:54
Hgb 7.2 g/dL (13.0-18.0) L 10/28/23 05:54
Hct 21.0 % (39.0-52.0) L 10/28/23 05:54
Plt Count 192 10^3/uL (130-400) 10/28/23 05:54
eGFR > 60.00 10/28/23 05:54
Phosphorus 3.0 mg/dl (2.5-4.5) 10/28/23 05:54
Albumin 3.7 g/dl (3.5-5.0) 10/26/23 20:38
Physical Exam
-
Vital Signs:
Vital Signs
Temp Pulse Resp BP Pulse Ox
98.6 F 72 16 120/67 98
10/28/23 07:24 10/28/23 06:00 10/28/23 06:00 10/28/23 06:00 10/28/23 07:39
Cardiovascular:: Regular rate and rhythm (tachy)
Respiratory:: Bilateral: CTA
Lung Excursion:: Normal
Abdomen:: Nontender and Soft
Bowel Sounds:: Normal
Extremity Edema:: None: Bilateral:
Madrigal Catheter: No
[2023-10-28] MEDS: ELIQUIS 5 MG PO ×2 (08:35→19:33)
[2023-10-28] MEDS: THIAMINE INJECTION 200 MG IV ×3 (08:35→23:10)
[2023-10-28] MEDS: SODIUM CHLORIDE 1 GRAM PO ×2 (08:35→19:33)
[2023-10-28] MEDS: FOLVITE 1 MG PO (08:35)
[2023-10-28] MEDS: PROTONIX 40 MG PO ×2 (08:35→19:33)
[2023-10-28] MEDS: AUGMENTIN 875 MG/125 MG 1 TABLET PO ×2 (08:35→19:33)
[2023-10-28] MEDS: CARDIZEM CD PO (08:47)
[2023-10-28] MEDS: DIOVAN PO (08:47)
--- NOTE | 2023-10-28 09:16 | W.PN.NEURO.1 ---
Today's Communication / Plan
-
.
Subjective/Objective
Subjective Data
Date of Service: October 28, 2023
24h events: Transiently hypotensive down to 92/60, afebrile. Mr. Cash continues to have rib pain. No recurrent seizures.
Na-122, normal TSH, unremarkable CPK.
Brain MRI�no acute infarcts, generalized atrophy.
Routine EEG(10/27/2023)-normal.
PMH: PA A-Fib, RLL pulmonary nodule, PAD, ADH, DLP, HTN, BPH, GERD, PUD, hepatic steatosis, nicotine/ETOH addiction
PSH:femoral popliteal bypass, right transtibial amputation;bilateral inguinal hernia repair
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
All: NKDA
ROS:Constitutional: Positive for fever
HENT: Negative for ear pain, hearing loss, tinnitus and trouble swallowing.
Eyes: Negative. Negative for photophobia, pain and visual disturbance.
Respiratory: Negative for cough, choking and shortness of breath.
Cardiovascular: Negative for chest pain, palpitations and leg swelling.
Gastrointestinal: Positive for hiccups
Endocrine: Negative. Negative for cold intolerance.
Genitourinary: Positive for urinary urgency
Musculoskeletal: Positive for right sided rib pain
Skin: Negative for rash.
Allergic/Immunologic: Negative. Negative for immunocompromised state.
Neurological: Negative for dizziness, tremors, seizures, speech difficulty, numbness and headaches.
Psychiatric/Behavioral: Negative for behavioral problems, confusion and hallucinations.
�
�
General: Well developed.� In moderate distress due to rib pain
Cardio: Regular rate and rhythm without murmur. Extremities are without cyanosis or edema.
Neuro:
Mental Status: Alert, oriented to self, person. Labile mood. No hemineglect or aphasia. Follows simple requests.
Cranial Nerves:� orthophoric primary gaze. EOMs full.� Visual gregory full to confrontation.� No ptosis.� No nystagmus.� Face symmetric.� Normal hearing AU.� The palate elevated well.� SCMs and traps 5/5.� Tongue midline.� No dysarthria.
Motor:� � � � Normal bulk and tone.� No pronator or arm drift.� Strength 5/5 throughout(R BKA)
Reflexes:� � � � � � Limited exam due to patient's distress
Sensory:� � Limited exam due to patient's distress
Gait: � � � � � deferred
Assessment and Plan:
�
I. Symptomatic seizure
II. Severe hyponatremia
III. Chronic left thalamic infarcts
IV. ETOH addiction
V. PA AFib
. Recent dental surgery
-Seizure precautions
-CIWA protocol
-No indications for AED
-Continue Eliquis 5 mg BID for stroke prevention.
-DVT prophylaxis
-OP neurology follow up in 2-3 weeks.
�
I personally reviewed all radiology and labs along with past medical records pertinent to current medical problems. Total time spent in patient care is 36 minutes.
�
Thank you for allowing us to participate in the care of this patient. Please do not hesitate to contact us with any questions or concerns.
�
Objective Data
Vital Signs
Temp Pulse Resp BP Pulse Ox
37.0 C 93 19 104/59 98
10/28/23 07:24 10/28/23 07:00 10/28/23 07:00 10/28/23 08:42 10/28/23 07:39
Lab Results
10/28/23 05:54
Sodium 122 mmol/L (135-145) L 10/28/23 05:54
Potassium 3.9 mmol/L (3.5-5.1) 10/28/23 05:54
BUN 8 mg/dl (9-20) L 10/28/23 05:54
Glucose 97 mg/dl (70-99) 10/28/23 05:54
Calcium 8.4 mg/dl (8.4-10.2) 10/28/23 05:54
Phosphorus 3.0 mg/dl (2.5-4.5) 10/28/23 05:54
Ur Buprenorphine Negative (Negative) 10/27/23 11:00
Patient Allergies
pollen extracts Allergy (Verified 11/07/22 16:21)
seasonal allergies
[2023-10-28] MEDS: SODIUM CHLORIDE 3% 250 IV ×2 (10:11→22:26)
[2023-10-28 10:54] LABS: Blood Urea Nitrogen 8 mg/dl (9-20); Calcium 8.2 mg/dl (8.4-10.2); Carbon Dioxide 22 mmol/L (22-30); Chloride 97 mmol/L (98-107); Estimated Creatinine Clearance 91 ml/min; Glucose 95 mg/dl (70-99); Potassium 3.6 mmol/L (3.5-5.1); Sodium 122 mmol/L (135-145); eGFR > 60.00
--- NOTE | 2023-10-28 11:30 | W.PN.UPDATE ---
Update Note
Progress Note Update
Pt seen, is awake/alert/oriented today. Pt calm, and cooperative, answering questions, speech coherent, thought goal-directed. No agitation. He does continue to c/o rib pain. Pt was given IV Ativan 0.5 mg once yesterday afternoon, but has not
received any further doses of Ativan on the MSAS protocol. Pt denies any depression. He reports drinking 3 to 5 beers per day, and an occasional shot of whiskey. Pt states he has been encouraged to stop drinking in the past by his doctor, but has
never had treatment or rehab. Sodium level continues to be low in range of 122; Nephrology following.
Imp: Alcohol use, unspecified
Rec:� continue on MSAS protocol as a precaution
No psychiatric intervention indicated; Psychiatry will sign off
--- NOTE | 2023-10-28 14:54 | CM ---
CM following re: discharge planning.
Reviewed pt's chart, met with pt.
Pt presents lying in the bed, AAOx3 and was talking to friend Dana. pt stated his sister visited him today. Pt reports: ' I am aware of what my problems are and I will return back home when discharged, I have no ambulation issues at home, using my
prosthetic leg'. Pt admitted being at [facility] last year.
Pt did admit to drinking problems and expressed no concerns.
PT and OT will evaluate the pt to determine a level of care at discharge.
D/C plan: pt requested to return back home at discharge.
CM will follow with discharge plan updates as hospitalization progresses
--- NOTE | 2023-10-28 15:11 | PN.CDI ---
CDI
- -
CDI:
Physician Documentation Request
Admit Date: 10/26/23 22:40
Dear Doctor Franklin,
Please review the following and provide your response in the progress notes.
Clinical Indicators:
The diagnosis of 'slight compression of anterior cervical spinal cord' was included in the signed [facility] MRI report, 10/26.
Brain, MRI, 10/26
#At C3-4, there appears to be slight compression of the anterior cervical spinal cord from disc/osteophyte complex.
Please indicate in the progress notes if the above diagnosis is valid for this patient:
Compression anterior cervical spinal cord is a valid diagnosis (Please include it in your progress notes)
Compression anterior cervical spinal cord is not a valid diagnosis for this patient
Compression anterior cervical spinal cord is not yet confirmed but remains a suspected condition
Other
Use of terms such as suspected, likely, concern for, or probable are acceptable for a diagnosis that is being evaluated, monitored or treated as if it exists and can be coded in the inpatient setting, when documented at the time of discharge.
Thank you,
Rianna Skinner RN BSN CCDS
CDI Specialist
please contact via tiger text
Please use your independent medical judgment in providing your response.
--- NOTE | 2023-10-28 15:17 | PN.CDI ---
CDI
- -
CDI:
Physician Documentation Request
Admit Date: 10/26/23 22:40
Dear Doctor Franklin,
Please review the following and provide your response in the progress notes.
Clinical Indicators:
Nephrology, consult, 10/26
#-Sodium rise from 116-124 status post 3%
#...-Holding antihypertensives in setting of hypotension
#-Fluid restriction 1200cc to continue
#...-can provide midodrine for hypotension if needed,
#...no IVFs for now given variable sodium levels
#-Status post 3% administered, follow electrolytes every 4 hours
PN, 10/27
#Severe symptomatic hyponatremia - corrected Na 117 for BG 168
#...HX hyponatremia - suspected SIADH in the past -HX� Samsca 08/28/22 and 08/30/22
#- 3%� Hypertonic saline� @ 30cc/hr per Renal
#- Ur Osm, Ur Na noted
#Diff etiology- Symptomatic hyponatremia vs acute ETOH WDS
Based on the above and your clinical assessment, please clarify in the progress notes, the appropriate diagnosis, if significant, that supports the above abnormalities and additional evaluation, monitoring and/or treatment rendered:
Chronic hyponatremia without SIADH
SIADH
Other
Use of terms such as suspected, likely, concern for, or probable (associated with a specific diagnosis that is being evaluated, monitored, or treated as if it exists) are acceptable and can be coded in the inpatient setting, when documented at the
time of discharge.
Thank you,
Rianna Skinner RN BSN CCDS
CDI Specialist
please contact via tiger text
Please use your independent medical judgment in providing your response.
[2023-10-28 16:19] LABS: Carbon Dioxide 22 mmol/L (22-30); Chloride 100 mmol/L (98-107); Potassium 3.5 mmol/L (3.5-5.1); Sodium 123 mmol/L (135-145)
--- NOTE | 2023-10-28 17:42 | PTCARENOTE ---
recd pt notes pain, resting in bed on R side. aware of plans for the shift. OOB min assist 2 pt put on prosthesis with liner, in chair, ordered dinner. labs drawn and sent, DR. Guerra visited, orders noted. Diet clarified.
[2023-10-28] MEDS: LIPITOR 40 MG PO (17:48)
[2023-10-28] MEDS: TYLENOL 1000 MG PO (18:28)
[2023-10-28] MEDS: DIOVAN 80 MG PO (22:32)
[2023-10-29 04:20] VITALS: BP 138/80
[2023-10-29] MEDS: MORPHINE SULFATE 2 MG IV (04:30)
[2023-10-29 04:34] VITALS: BMI 19.8
[2023-10-29 04:39] LABS: Hematocrit 21.1 % (39.0-52.0); Hemoglobin 7.3 g/dL (13.0-18.0); Mean Corp Hgb Conc. 34.6 g/dL (33.0-37.0); Mean Corpuscular Hgb 31.9 pg (27.0-31.0); Mean Corpuscular Volume 92.1 fL (80.0-94.0); Mean Platelet Volume 9.9 fL (7.4-10.4); Platelet Count 252 10^3/uL (130-400); Red Blood Cell Count 2.29 10^6/uL (4.70-6.10); Red Cell Dist. Width 12.5 % (11.5-14.5); White Blood Cell Count 6.3 10^3/uL (4.8-10.8)
[2023-10-29 05:04] LABS: Blood Urea Nitrogen 6 mg/dl (9-20); Calcium 7.9 mg/dl (8.4-10.2); Carbon Dioxide 20 mmol/L (22-30); Chloride 102 mmol/L (98-107); Estimated Creatinine Clearance 93 ml/min; Glucose 106 mg/dl (70-99); Magnesium 1.7 mg/dl (1.6-2.3); Potassium 3.3 mmol/L (3.5-5.1); Sodium 125 mmol/L (135-145); eGFR > 60.00
[2023-10-29 05:13] LABS: Total Iron Binding Capacity 252 ug/dl (261-462)
[2023-10-29 05:28] LABS: Iron < 20 ug/dl (49-181)
[2023-10-29 06:03] LABS: Vitamin B12 529 pg/ml (239-931)
--- NOTE | 2023-10-29 07:12 | W.PN.HOSP.TC ---
Today's Communication/Plan
-
Hyponatremia mgmt as per nephro
Fluid restriction
downgrade to Tele when room available
IV iron supplementation
monitor H&H
MSAS protocol
Assessment / Plan
Assessment / Plan
Physical Exam
General: No Apparent Distress, Conversant
HEENT: NormoCephalic, Anicteric and Moist mucous membranes
Respiratory: Clear; No Wheezes, Rales or Rhonchi
Cardiac: S1/S2 and Regular Rhythm
GI: Soft, Non Tender and Non Distended
Musculoskeletal: s/p RLE BKA
Skin: Ecchymosis Rt elbow numerous small excoriations upper ext's
Neuro: Awake Alert Conversant
Psych: Calm
Severe symptomatic hyponatremia - corrected Na 117 for BG 168
Hypochloremic + severe hypokalemia + Normal renal function
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
Possible Chronic Hyponatremia w/o SIADH
- 3%� Hypertonic saline� @ 30cc/hr per Renal
- Potassium repleted
- Ur Osm, Ur Na noted
- FR� 40 oz
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
- Trend Na
- monitor ortho VSS
- Renal consult appreciated
Witnessed brief Sz� like activity for x 1 min @ ER - RN� described as getting very stiff and rolling both eyes up when he sit up with assistance - s/p Ativan at ER
Partial complex Sz ?
Reports� vague HX sz per patient
Diff etiology- Symptomatic hyponatremia (more likely at this time) vs acute ETOH WDS (less likely/ruled out)
- NEG HCT for acute process
- resolved with prn IV Ativan
- correct Na� with 3%� Hypertonic saline� @ 30cc/hr per Renal
- Neuro consult appreciated
-MR Brain no acute abn's Eliquis continued
slight compression of the anterior cervical spinal cord C3-4 from disc/osteophyte complex as noted on MRI, nonsignificant finding at this time
At risk for ETOH WDS
ETOH use disorder
-MSAS protocol
- fall precautions
- Psych consult appreciated
Acute N/V� DDx: ETOH ralated� Gastritis vs. Viral gastritis
CT abd/pelvis 2nd portion duodenum inflammation suggestive Peptic Ulcer Disease likely 2/2 alcohol use
-PPI BID started, cont
Low back pain s/p fall
Ecchymoses on Rt elbow s/p fall
Fall and LOC at home - syncope vs Sz vs Postural hypotension
- XR Lx spine appreciated no acute fracture
- XR Rt elbow appreciated no acute fracture
- CT chest appreciated Acute nondisplaced fracture of the right lateral 10th rib
- fall precaution
-pain control
CT chest appreciated
-2.9 mm solid pulmonary nodule in the right lower lobe, [address] recommended
-�Multiple moderate-sized regions of ground-glass opacity in the left upper and lower lobes and small number of ground-glass opacities in the right lower lobe, unclear significance.
-Pulm eval appreciated
Anemia
Severe Iron deficiency Anemia
Anemia of Chronic Disease
B12 wnl
-no obvious signs of bleeding
-H&H stable, likely dilutional effect
-IV iron supplementation started
moderate protein calorie malnutrition
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
� Essential HTN: cont valsartan/diltiazem
� Tobacco abuse disorder: Counseled on smoking cessation
� Insomnia: cont melatonin, Benadryl, trazodone
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
� HX right SFA occlusion status post lysis in 2017
� GERD: cont PPI
DVT Px: Eliquis
Code: Full code
Stable for downgrade to Tele
I spent a total of 50 minutes with the patient or on the floor. More than 50% of this time involved counseling and coordination of care.
Anticipated Discharge: 24 - 48 hours
Subjective/Interval History
-
Date of Service: October 29, 2023
Objective Data
-
Labs:
Laboratory Results
10/29/23
04:27
WBC 6.3
Hgb 7.3 L
Hct 21.1 L
Plt Count 252 D
Sodium 125 L
Potassium 3.3 L
Chloride 102
Carbon Dioxide 20 L
BUN 6 L
Creatinine 0.5 L
Glucose 106 H
Calcium 7.9 L
Vital Signs:
Vital Signs
Temp Pulse Resp BP Pulse Ox
97.8 F 72 15 138/80 100
10/29/23 04:30 10/29/23 06:00 10/29/23 06:00 10/29/23 04:20 10/29/23 04:20
I&O
10/28/23 10/29/23 10/30/23
06:59 06:59 06:59
Intake Total 1360 / 1360
Output Total 550 / 550 1000 / 1000
Balance -550 / -550 360 / 360
[2023-10-29 08:00] VITALS: BP 142/96
[2023-10-29] MEDS: DIOVAN 80 MG PO ×2 (08:01→20:05)
[2023-10-29] MEDS: TYLENOL 1000 MG PO ×2 (08:01→20:04)
[2023-10-29] MEDS: SODIUM CHLORIDE 1 GRAM PO ×2 (08:01→20:05)
[2023-10-29] MEDS: AUGMENTIN 875 MG/125 MG 1 TABLET PO ×2 (08:02→20:05)
[2023-10-29] MEDS: THIAMINE INJECTION 200 MG IV ×2 (08:02→15:21)
[2023-10-29] MEDS: FOLVITE 1 MG PO (08:02)
[2023-10-29] MEDS: ELIQUIS 5 MG PO ×2 (08:02→20:07)
[2023-10-29] MEDS: PROTONIX 40 MG PO ×2 (08:02→20:05)
[2023-10-29] MEDS: CARDIZEM CD 180 MG PO (08:02)
--- NOTE | 2023-10-29 09:00 | PTCARENOTE ---
recd pt tele level of care awaiting bed. MSAS noted, completed, low scores x 48 hours. presently sitting on edge of bed, eating breakfast. room made warmer, c/o cold. asking questions about timing for discharge, referred to MD for plan and
goals. call moss in reach, no other c/o. med with tylenol, pain manageable except when moving or coughing.
--- NOTE | 2023-10-29 10:47 | W.PN.NEPH.PH ---
Addendum entered and electronically signed by Marilia Muñoz MD 10/29/23 12:17:
now that BP are improving and decreasing sodium
try samsca , recheck labs later today
avoiding lasix with hypokalemia
Original Note:
Today's Communication / Plan
-
see plan
Assessment/Plan
-
Impression:
Symptomatic hyponatremia with seizure
History of atrial fibrillation
History of profound peripheral vascular disease
History of hypertension
History of hypokalemia
Status post fall with subsequent nondisplaced fracture of right lateral 10th rib
Anemia
History of right BKA
Plan:
Sodium improving slowly with 3% saline at 125 today
repeat labs now and likely resume 3% again
goal of sodium >130 by tomorrow
Holding antihypertensives in setting of hypotension
-Fluid restriction 1200cc to continue
-hemodynamically more stable
check cortisol, TSH is ok
repalce k
IV fe per primary
d/w nursing and pt
-
-
Date of Service: October 29, 2023
CC / HPI / ROS
-
Chief Complaint:
Hyponatremia
History of Present Illness:
Serum sodium at 125 s/p 3 percent saline
Hemodynamically more stable, mild tachy specially on exertion
Review of Systems:
non oliguric
weights stable
no chest pain or sob
Labs
-
Labs:
WBC 6.3 10^3/uL (4.8-10.8) 10/29/23 04:27
RBC 2.29 10^6/uL (4.70-6.10) L 10/29/23 04:27
Hgb 7.3 g/dL (13.0-18.0) L 10/29/23 04:27
Hct 21.1 % (39.0-52.0) L 10/29/23 04:27
Plt Count 252 10^3/uL (130-400) D 10/29/23 04:27
Sodium 125 mmol/L (135-145) L 10/29/23 04:27
Potassium 3.3 mmol/L (3.5-5.1) L 10/29/23 04:27
Chloride 102 mmol/L (98-107) 10/29/23 04:27
Carbon Dioxide 20 mmol/L (22-30) L 10/29/23 04:27
BUN 6 mg/dl (9-20) L 10/29/23 04:27
Creatinine 0.5 mg/dL (0.7-1.3) L 10/29/23 04:27
eGFR > 60.00 10/29/23 04:27
Glucose 106 mg/dl (70-99) H 10/29/23 04:27
Calcium 7.9 mg/dl (8.4-10.2) L 10/29/23 04:27
Phosphorus 3.0 mg/dl (2.5-4.5) 10/29/23 04:27
Albumin 3.7 g/dl (3.5-5.0) 10/26/23 20:38
Physical Exam
-
Vital Signs:
Vital Signs
Temp Pulse Resp BP Pulse Ox
98 F 97 20 142/96 94
10/29/23 07:18 10/29/23 08:02 10/29/23 08:00 10/29/23 08:02 10/29/23 08:00
Cardiovascular:: Regular rate and rhythm
Respiratory:: Bilateral: CTA
Lung Excursion:: Normal
Abdomen:: Nontender and Soft
Extremity Edema:: None: Left:
Madrigal Catheter: No
Other Findings::
rt leg prosthesis
[2023-10-29] MEDS: KCL 40 MEQ PO (11:07)
[2023-10-29] MEDS: FERRLECIT 110 MG IV (11:07)
[2023-10-29 11:34] LABS: Sodium 123 mmol/L (135-145)
[2023-10-29 11:57] VITALS: BP 100/56
[2023-10-29] MEDS: SAMSCA 7.5 MG PO (12:39)
[2023-10-29] MEDS: CALCIUM GLUCONATE 100 IV (12:39)
--- NOTE | 2023-10-29 14:22 | CM ---
CM following re: discharge planning.
Reviewed pt's chart, met with pt.
Pt has been observed walking on the becker independently with a walker.
CLARIBEL Hernandez met with the pt and pt expressed no interest to participate in the interview.
D/C plan: pt requested to return back home at discharge.
CM will follow with discharge plan updates as hospitalization progresses
--- NOTE | 2023-10-29 15:01 | PN.CDI ---
CDI
- -
CDI:
Physician Documentation Request
Admit Date: 10/26/23 22:40
Dear Doctor Franklni,
Please review the following and provide your response in the progress notes.
Clinical Indicators:
Clinical Project Coordinator, 10/28
#CBW: 115 lbs 1.301 oz adjusted BMI with BKA 20.8 normal range, 112 lbs 10.499oz (10/26) . #Pts weight previous admission listed as 125 lbs 04/25/23
#...reflective of 13 lb (10%) in 6 months, significant.
#With decreased intakes of < 75% of estimated needs > 1 month
#...pt meets AND/ASPEN criteria for moderate protein calorie malnutrition
#...of social economic SEC
Based on the above and your clinical assessment please a diagnosis that reflects the patient's nutritional status:
Moderate protein calorie malnutrition of social economic SEC
Other (please specify)
[place] Criteria ([facility] Hospitalist 2017)
2 or more criteria must be present for either
non severe or severe malnutrition
Note that the criteria differs related to the
presence of an acute or chronic illness
Acute Illness Chronic Illness
Energy Intake Non Severe: <75% for >7 days Non Severe: <75% for >1 month
Severe: <50% for >5 days Severe: <75% for >1 month
Weight Loss Non Severe: 1-2% over 1 week Non Severe: 5% over 1 month
5% over 1 month 7.5% over 3 months
7.5% over 3 months 10% over 6 months
1 year N/A 20% over 1 year
Severe: >2% over 1 week Severe: >5% over 1 month
>5% over 1 month >7.5% over 3 months
>7.5% over 3 months >10% over 6 months
1 year N/A >20% over 1 year
Body Fat Non Severe: Mild Decrease Non Severe: Mild Loss
Severe: Moderate Decrease Severe: Severe Loss
Muscle Mass Non Severe: Mild Decrease Non Severe: Mild Loss
Severe: Moderate Decrease Severe: Severe Loss
Use of terms such as suspected, likely, concern for, or probable (associated with a specific diagnosis that is being evaluated, monitored, or treated as if it exists) are acceptable and can be coded in the inpatient setting, when documented at the
time of discharge.
Thank you,
Rianna Skinner RN BSN CCDS
CDI Specialist
please contact via tiger text
Please use your independent medical judgment in providing your response.
[2023-10-29 15:24] VITALS: BP 102/67
--- NOTE | 2023-10-29 16:16 | PTCARENOTE ---
ambulating by self regularly, often, in hallway. good spirits.
[2023-10-29] MEDS: LIPITOR 40 MG PO (17:51)
[2023-10-29 18:59] LABS: Sodium 127 mmol/L (135-145)
[2023-10-29 20:16] VITALS: BP 122/71
[2023-10-30 04:50] VITALS: BP 125/62
[2023-10-30 05:02] LABS: Hematocrit 24.9 % (39.0-52.0); Hemoglobin 8.5 g/dL (13.0-18.0); Mean Corp Hgb Conc. 34.1 g/dL (33.0-37.0); Mean Corpuscular Hgb 31.4 pg (27.0-31.0); Mean Corpuscular Volume 91.9 fL (80.0-94.0); Mean Platelet Volume 9.7 fL (7.4-10.4); Platelet Count 365 10^3/uL (130-400); Red Blood Cell Count 2.71 10^6/uL (4.70-6.10); Red Cell Dist. Width 12.9 % (11.5-14.5); White Blood Cell Count 6.7 10^3/uL (4.8-10.8)
[2023-10-30 05:39] LABS: Blood Urea Nitrogen 4 mg/dl (9-20); Calcium 8.7 mg/dl (8.4-10.2); Carbon Dioxide 22 mmol/L (22-30); Chloride 106 mmol/L (98-107); Estimated Creatinine Clearance 93 ml/min; Glucose 95 mg/dl (70-99); Magnesium 1.8 mg/dl (1.6-2.3); Phosphorus 3.4 mg/dl (2.5-4.5); Sodium 129 mmol/L (135-145); eGFR > 60.00
[2023-10-30 06:07] LABS: Cortisol, Random 16.8 ug/dl
--- NOTE | 2023-10-30 07:23 | W.PN.HOSP.TC ---
Today's Communication/Plan
-
Ok for patient to shower, provide chair and maintain fall precautions
cont treatment hyponatremia as per Nephro
ok to discontinue MSAS protocol, no significant withdrawal symptoms >48H
Melotonin bedtime, Benadryl Prn Insomnia
Stable for downgrade to Med/Surg
Assessment / Plan
Assessment / Plan
Physical Exam
General: No Apparent Distress, Conversant
HEENT: NormoCephalic, Anicteric and Moist mucous membranes
Respiratory: Clear; No Wheezes, Rales or Rhonchi
Cardiac: S1/S2 and Regular Rhythm
GI: Soft, Non Tender and Non Distended
Musculoskeletal: s/p RLE BKA
Skin: Ecchymosis Rt elbow numerous small excoriations upper ext's
Neuro: Awake Alert Conversant
Psych: Calm
Severe symptomatic hyponatremia - corrected Na 117 for BG 168
Hypochloremic + severe hypokalemia + Normal renal function
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
Possible Chronic Hyponatremia w/o SIADH
- 3%� Hypertonic saline� @ 30cc/hr per Renal
- Potassium repleted
- Ur Osm, Ur Na noted
- FR� 40 oz
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
- Trend Na
- monitor ortho VSS
- Renal consult appreciated
Witnessed brief Sz� like activity for x 1 min @ ER - RN� described as getting very stiff and rolling both eyes up when he sit up with assistance - s/p Ativan at ER
Partial complex Sz ?
Reports� vague HX sz per patient
Diff etiology- Symptomatic hyponatremia (more likely at this time) vs acute ETOH WDS (less likely/ruled out)
- NEG HCT for acute process
- resolved with prn IV Ativan
- correct Na� with 3%� Hypertonic saline� @ 30cc/hr per Renal
- Neuro consult appreciated
-MR Brain no acute abn's Eliquis continued
slight compression of the anterior cervical spinal cord C3-4 from disc/osteophyte complex as noted on MRI, nonsignificant finding at this time
At risk for ETOH WDS
ETOH use disorder
-No significant withdrawal symptoms >48 h, MSAS protocol discontinued
- fall precautions
- Psych consult appreciated
Acute N/V� DDx: ETOH ralated� Gastritis vs. Viral gastritis
CT abd/pelvis 2nd portion duodenum inflammation suggestive Peptic Ulcer Disease likely 2/2 alcohol use
-PPI BID started, cont
Low back pain s/p fall
Ecchymoses on Rt elbow s/p fall
Fall and LOC at home - syncope vs Sz vs Postural hypotension
- XR Lx spine appreciated no acute fracture
- XR Rt elbow appreciated no acute fracture
- CT chest appreciated Acute nondisplaced fracture of the right lateral 10th rib
- fall precaution
-pain control
CT chest appreciated
-2.9 mm solid pulmonary nodule in the right lower lobe, [address] recommended
-�Multiple moderate-sized regions of ground-glass opacity in the left upper and lower lobes and small number of ground-glass opacities in the right lower lobe, unclear significance.
-Pulm eval appreciated
Anemia
Severe Iron deficiency Anemia
Anemia of Chronic Disease
B12 wnl
-no obvious signs of bleeding
-H&H stable, likely dilutional effect
-IV iron supplementation started
Insomnia
-melatonin HS, Benadryl PRN
Recent Dental Implant
-cont home Augmentin
moderate protein calorie malnutrition
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
� Essential HTN: cont valsartan/diltiazem
� Tobacco abuse disorder: Counseled on smoking cessation
� Insomnia: cont melatonin, Benadryl, trazodone
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
� HX right SFA occlusion status post lysis in 2017
� GERD: cont PPI
DVT Px: Eliquis
Code: Full code
Stable for downgrade to Med/surg
PT/OT eval
I spent a total of 50 minutes with the patient or on the floor. More than 50% of this time involved counseling and coordination of care.
Anticipated Discharge: 24 - 48 hours
Subjective/Interval History
-
Date of Service: October 30, 2023
No acute distress sitting up comfortably in bed. Pain improved. Endorses sleeping issues overnight.
Objective Data
-
Labs:
Laboratory Results
10/30/23
04:50
WBC 6.7
Hgb 8.5 L
Hct 24.9 L
Plt Count 365 D
Sodium 129 L
Potassium 4.0
Chloride 106
Carbon Dioxide 22
BUN 4 L
Creatinine 0.5 L
Glucose 95
Calcium 8.7
Vital Signs:
Vital Signs
Temp Pulse Resp BP Pulse Ox
98.1 F 62 10 125/62 94
10/30/23 03:39 10/30/23 05:00 10/29/23 14:00 10/30/23 04:50 10/29/23 08:00
I&O
10/29/23 10/30/23 10/31/23
06:59 06:59 06:59
Intake Total 1360 / 1360 1060 / 1060
Output Total 1000 / 1000 1500 / 1500
Balance 360 / 360 -440 / -440
[2023-10-30 07:47] VITALS: BP 125/66
[2023-10-30] MEDS: TYLENOL 1000 MG PO ×2 (07:52→16:01)
[2023-10-30] MEDS: SODIUM CHLORIDE 1 GRAM PO ×2 (07:53→19:51)
[2023-10-30] MEDS: CARDIZEM CD 180 MG PO (07:53)
[2023-10-30] MEDS: ELIQUIS 5 MG PO ×2 (07:53→19:52)
[2023-10-30] MEDS: FOLVITE 1 MG PO (07:53)
[2023-10-30] MEDS: DIOVAN 80 MG PO (07:53)
[2023-10-30] MEDS: VITAMIN B1 100 MG PO ×2 (07:53→19:52)
[2023-10-30] MEDS: PROTONIX 40 MG PO ×2 (07:53→19:51)
[2023-10-30] MEDS: AUGMENTIN 875 MG/125 MG 1 TABLET PO ×2 (07:53→19:51)
[2023-10-30 09:10] VITALS: PULSE 114
--- NOTE | 2023-10-30 09:52 | PTOTSP ---
The patient is mobilizing independently with use of the walker, ambulating in the hallways while here. Encouraged continued activity while hospitalized to help minimize deconditioning. Recommend Outpatient PT to work towards ambulation with the SPC,
which is baseline. No acute PT needs at this time, will sign off.
--- NOTE | 2023-10-30 11:34 | W.PN.NEPH.PH ---
Today's Communication / Plan
-
samsca again today
Assessment/Plan
-
Impression:
Symptomatic hyponatremia with seizure
History of atrial fibrillation
History of profound peripheral vascular disease
History of hypertension
History of hypokalemia
Status post fall with subsequent nondisplaced fracture of right lateral 10th rib
Anemia
History of right BKA
Plan:
Sodium improving to 129 today s/p samsca
will redose samsca today
-Fluid restriction 1200cc to continue
BP stable on home meds
normal TSH and cortisol
IV fe per primary
d/w nursing and pt
on d/c will need BMP with PCP in 1week
f/u nephro if needed
-
-
Date of Service: October 30, 2023
CC / HPI / ROS
-
Chief Complaint:
Hyponatremia
History of Present Illness:
Serum sodium at 129 post samsca 10/28
Hemodynamically stable, mild tachy specially on exertion
no fever
Review of Systems:
non oliguric
weights stable
no chest pain or sob
Labs
-
Labs:
WBC 6.7 10^3/uL (4.8-10.8) 10/30/23 04:50
RBC 2.71 10^6/uL (4.70-6.10) L 10/30/23 04:50
Hgb 8.5 g/dL (13.0-18.0) L 10/30/23 04:50
Hct 24.9 % (39.0-52.0) L 10/30/23 04:50
Plt Count 365 10^3/uL (130-400) D 10/30/23 04:50
Sodium 129 mmol/L (135-145) L 10/30/23 04:50
Potassium 4.0 mmol/L (3.5-5.1) 10/30/23 04:50
Chloride 106 mmol/L (98-107) 10/30/23 04:50
Carbon Dioxide 22 mmol/L (22-30) 10/30/23 04:50
BUN 4 mg/dl (9-20) L 10/30/23 04:50
Creatinine 0.5 mg/dL (0.7-1.3) L 10/30/23 04:50
eGFR > 60.00 10/30/23 04:50
Glucose 95 mg/dl (70-99) 10/30/23 04:50
Calcium 8.7 mg/dl (8.4-10.2) 10/30/23 04:50
Phosphorus 3.4 mg/dl (2.5-4.5) 10/30/23 04:50
Albumin 3.7 g/dl (3.5-5.0) 10/26/23 20:38
Physical Exam
-
Vital Signs:
Vital Signs
Temp Pulse Resp BP Pulse Ox
98.7 F 83 10 125/66 100
10/30/23 07:35 10/30/23 08:00 10/29/23 14:00 10/30/23 07:53 10/30/23 08:27
Cardiovascular:: Regular rate and rhythm
Respiratory:: Bilateral: CTA
Lung Excursion:: Normal
Abdomen:: Nontender and Soft
Extremity Edema:: None: Left:
Madrigal Catheter: No
Other Findings::
right BKA
[2023-10-30 12:28] VITALS: BP 105/63
[2023-10-30] MEDS: SAMSCA 15 MG PO (12:29)
--- NOTE | 2023-10-30 12:44 | PTCARENOTE ---
pt ambulating around unit with walker with rn. downgraded to medsurg, report given to receiving rn, sent with all belongings.
--- NOTE | 2023-10-30 12:59 | CM ---
CM following re: discharge planning.
Reviewed pt's chart, met with pt.
Pt has been observed walking on the becker independently with a walker.
PT and OT evaluations noted - pt has no skilled PT/OT needs.
D/C plan: Home no needs. Friend Ivonne to transport at discharge.
CM will follow with discharge plan updates as needed.
[2023-10-30] MEDS: FERRLECIT 110 MG IV (13:53)
[2023-10-30 15:00] VITALS: BP 119/54
[2023-10-30] MEDS: LIPITOR 40 MG PO (17:13)
[2023-10-30] MEDS: DIOVAN PO (19:55)
[2023-10-30] MEDS: MELATONIN 3 MG PO (21:53)
[2023-10-30 23:51] VITALS: BP 138/61
[2023-10-31 05:17] VITALS: BMI 19.5
[2023-10-31 05:55] LABS: Hemoglobin 7.1 g/dL (13.0-18.0); Mean Corp Hgb Conc. 34.8 g/dL (33.0-37.0); Mean Corpuscular Hgb 32.3 pg (27.0-31.0); Mean Corpuscular Volume 92.7 fL (80.0-94.0); Platelet Count 429 10^3/uL (130-400); Red Cell Dist. Width 13.2 % (11.5-14.5); White Blood Cell Count 7.1 10^3/uL (4.8-10.8)
[2023-10-31 06:15] LABS: Hematocrit 20.4 % (39.0-52.0)
[2023-10-31 06:19] LABS: Blood Urea Nitrogen 5 mg/dl (9-20); Calcium 8.6 mg/dl (8.4-10.2); Carbon Dioxide 22 mmol/L (22-30); Chloride 106 mmol/L (98-107); Estimated Creatinine Clearance 92 ml/min; Glucose 101 mg/dl (70-99); Magnesium 1.7 mg/dl (1.6-2.3); Phosphorus 3.7 mg/dl (2.5-4.5); Potassium 4.3 mmol/L (3.5-5.1); Sodium 132 mmol/L (135-145); eGFR > 60.00
[2023-10-31 07:35] VITALS: BP 141/74
--- NOTE | 2023-10-31 07:53 | W.PN.HOSP.TC ---
Today's Communication/Plan
-
cont IV iron supplemenation
monitor H&H transfusion goal Hgb>7
NPO after midnight for EGD
holding Eliquis at this time, last dose evening 10/29
cont Hyponatremia mgmt as per Nephro
Assessment / Plan
Assessment / Plan
Physical Exam
General: No Apparent Distress, Conversant
HEENT: NormoCephalic, Anicteric and Moist mucous membranes
Respiratory: Clear; No Wheezes, Rales or Rhonchi
Cardiac: S1/S2 and Regular Rhythm
GI: Soft, Non Tender and Non Distended
Musculoskeletal: s/p RLE BKA
Skin: Ecchymosis Rt elbow numerous small excoriations upper ext's
Neuro: Awake Alert Conversant
Psych: Calm
Severe symptomatic hyponatremia - corrected Na 117 for BG 168
Hypochloremic + severe hypokalemia + Normal renal function
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
Possible Chronic Hyponatremia w/o SIADH
- 3%� Hypertonic saline� @ 30cc/hr per Renal completed
- Potassium repleted
- Ur Osm, Ur Na noted
- FR� 40 oz
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
- Trend Na improved to 130s
- monitor ortho VSS
- Renal consult appreciated
Witnessed brief Sz� like activity for x 1 min @ ER - RN� described as getting very stiff and rolling both eyes up when he sit up with assistance - s/p Ativan at ER
Partial complex Sz ?
Reports� vague HX sz per patient
Diff etiology- Symptomatic hyponatremia (more likely at this time) vs acute ETOH WDS (less likely/ruled out)
- NEG HCT for acute process
- resolved with prn IV Ativan
- correct Na� with 3%� Hypertonic saline� @ 30cc/hr per Renal
- Neuro consult appreciated
-MR Brain no acute abn's Eliquis continued
slight compression of the anterior cervical spinal cord C3-4 from disc/osteophyte complex as noted on MRI, nonsignificant finding at this time
At risk for ETOH WDS
ETOH use disorder
-No significant withdrawal symptoms >48 h, MSAS protocol discontinued
- fall precautions
- Psych consult appreciated
Acute N/V� DDx: ETOH ralated� Gastritis vs. Viral gastritis
CT abd/pelvis 2nd portion duodenum inflammation suggestive Peptic Ulcer Disease likely 2/2 alcohol use
-PPI BID started, cont
Anemia
Severe Iron deficiency Anemia
Anemia of Chronic Disease
B12 wnl
-IV iron supplementation started
-Anemia persists, patient relates hx dark stools though appears resolved at this time
-Eliquis placed on hold, last dose evening 10/29
-GI eval appreciated NPO after midnight for EGD in AM
Low back pain s/p fall
Ecchymoses on Rt elbow s/p fall
Fall and LOC at home - syncope vs Sz vs Postural hypotension
- XR Lx spine appreciated no acute fracture
- XR Rt elbow appreciated no acute fracture
- CT chest appreciated Acute nondisplaced fracture of the right lateral 10th rib
- fall precaution
-pain control
CT chest appreciated
-2.9 mm solid pulmonary nodule in the right lower lobe, [address] recommended
-�Multiple moderate-sized regions of ground-glass opacity in the left upper and lower lobes and small number of ground-glass opacities in the right lower lobe, unclear significance.
-Pulm eval appreciated
Insomnia
-melatonin HS, Benadryl PRN
Recent Dental Implant
-cont home Augmentin
moderate protein calorie malnutrition
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
pAfib hx DVT on Eliquis
� Essential HTN: cont valsartan/diltiazem
� Tobacco abuse disorder: Counseled on smoking cessation
� Insomnia: cont melatonin, Benadryl, trazodone
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
� HX right SFA occlusion status post lysis in 2017
� GERD: cont PPI
DVT Px: Eliquis on hold last dose 10/29 evening concern GIB
Code: Full code
PT/OT eval appreciated no skilled needs, patient baseline functional status
I spent a total of 55 minutes with the patient or on the floor. More than 50% of this time involved counseling and coordination of care.
Anticipated Discharge: 24 - 48 hours
Subjective/Interval History
-
Date of Service: October 31, 2023
Anemia persists. patient reports history dark stools though notes bowel movement today normal.
Objective Data
-
Labs:
Laboratory Results
10/31/23 10/31/23
05:31 07:26
WBC 7.1
Hgb 7.1 L Pending
Hct 20.4 L* Pending
Plt Count 429 H
Sodium 132 L
Potassium 4.3
Chloride 106
Carbon Dioxide 22
BUN 5 L
Creatinine 0.6 L
Glucose 101 H
Calcium 8.6
Vital Signs:
Vital Signs
Temp Pulse Resp BP Pulse Ox
98.1 F 74 14 138/61 100
10/30/23 23:51 10/30/23 23:51 10/30/23 23:51 10/30/23 23:51 10/30/23 23:51
I&O
10/30/23 10/31/23 11/01/23
06:59 06:59 06:59
Intake Total 1060 / 1060 480 / 480
Output Total 1500 / 1500 1680 / 1680
Balance -440 / -440 -1200 / -1200
[2023-10-31] MEDS: PROTONIX 40 MG PO ×2 (09:08→20:19)
[2023-10-31] MEDS: SODIUM CHLORIDE 1 GRAM PO ×2 (09:08→20:19)
[2023-10-31] MEDS: FOLVITE 1 MG PO (09:08)
[2023-10-31] MEDS: VITAMIN B1 100 MG PO ×2 (09:08→20:18)
[2023-10-31] MEDS: DIOVAN 80 MG PO ×2 (09:08→20:22)
[2023-10-31] MEDS: AUGMENTIN 875 MG/125 MG 1 TABLET PO ×2 (09:08→20:19)
[2023-10-31] MEDS: CARDIZEM CD 180 MG PO (09:08)
[2023-10-31 09:22] LABS: Hematocrit 24.6 % (39.0-52.0); Hemoglobin 8.5 g/dL (13.0-18.0)
--- NOTE | 2023-10-31 12:16 | W.PN.NEPH.PH ---
Today's Communication / Plan
-
maintain FR
follow bmp
Assessment/Plan
-
Impression:
Symptomatic hyponatremia with seizure
History of atrial fibrillation
History of profound peripheral vascular disease
History of hypertension
History of hypokalemia
Status post fall with subsequent nondisplaced fracture of right lateral 10th rib
Anemia
History of right BKA
Plan:
Sodium improving to 132 today s/p samsca
hold further samsca at this time
-Fluid restriction 1200cc to continue
BP stable on home meds
normal TSH and cortisol
IV fe per primary
hgb 8.5
on d/c will need BMP with PCP in 1week
-
-
Date of Service: October 31, 2023
CC / HPI / ROS
-
Chief Complaint:
Hyponatremia
History of Present Illness:
Serum sodium at 132 post samsca 10/28 and 10/29
Hemodynamically stable, mild tachy specially on exertion
no fever
Review of Systems:
non oliguric
weights stable
no chest pain or sob
Labs
-
Labs:
WBC 7.1 10^3/uL (4.8-10.8) 10/31/23 05:31
RBC 2.20 10^6/uL (4.70-6.10) L 10/31/23 05:31
Hgb 8.5 g/dL (13.0-18.0) L 10/31/23 08:38
Hct 24.6 % (39.0-52.0) L 10/31/23 08:38
Plt Count 429 10^3/uL (130-400) H 10/31/23 05:31
Sodium 132 mmol/L (135-145) L 10/31/23 05:31
Potassium 4.3 mmol/L (3.5-5.1) 10/31/23 05:31
Chloride 106 mmol/L (98-107) 10/31/23 05:31
Carbon Dioxide 22 mmol/L (22-30) 10/31/23 05:31
BUN 5 mg/dl (9-20) L 10/31/23 05:31
Creatinine 0.6 mg/dL (0.7-1.3) L 10/31/23 05:31
eGFR > 60.00 10/31/23 05:31
Glucose 101 mg/dl (70-99) H 10/31/23 05:31
Calcium 8.6 mg/dl (8.4-10.2) 10/31/23 05:31
Phosphorus 3.7 mg/dl (2.5-4.5) 10/31/23 05:31
Albumin 3.7 g/dl (3.5-5.0) 10/26/23 20:38
Physical Exam
-
Vital Signs:
Vital Signs
Temp Pulse Resp BP Pulse Ox
98.0 F 79 16 141/74 100
10/31/23 07:35 10/31/23 07:35 10/31/23 07:35 10/31/23 07:35 10/31/23 07:35
Cardiovascular:: Regular rate and rhythm
Respiratory:: Bilateral: CTA
Lung Excursion:: Normal
Abdomen:: Nontender and Soft
Bowel Sounds:: Normal
Extremity Edema:: None: Bilateral:
Madrigal Catheter: No
[2023-10-31] MEDS: FERRLECIT 110 MG IV (12:33)
--- NOTE | 2023-10-31 12:42 | CON.GI ---
Addendum entered and electronically signed by Jt Helton MD 10/31/23 15:46:
EGD tomorrow. Patient is agreeable.
N.p.o. after midnight
Addendum entered and electronically signed by Jt Helton MD 10/31/23 14:51:
I saw and examined the patient.
The RENAL CASE MANAGER's note was reviewed and I agree with the note.
63-year-old male with a past medical history significant for hypertension, GERD, daily alcohol use, severe peripheral artery disease requiring right below the knee amputation, history of DVT on Eliquis, paroxysmal atrial fibrillation, chronic
hyponatremia, anemia, who presented to the ER with nausea and vomiting, found to have hyponatremia with a witnessed seizure. We are being asked to evaluate for possible GI bleed with iron deficiency anemia and dark stools with history of alcohol
use.� Hospital course as noted above, with severe hyponatremia and witnessed seizure.� Improved clinically with improved sodium levels being followed by nephrology.� He has had ongoing anemia this admission, which appears chronic.� He does have iron
deficiency and was started on IV iron.� He has had intermittent dark stools, but currently brown per patient.� He denies use of NSAIDs.� His renal function is normal.� He does use alcohol on a daily basis but with normal LFTs and no abnormal liver
findings on CT imaging.� He did have some nausea and vomiting prior to admission and reports some coffee-ground emesis, along with CT findings of duodenal inflammation concern for possible peptic ulcer disease.� His Eliquis has been held as of
yesterday evening.
Problem list:
-Acute on chronic iron deficiency anemia. no overt GI bleeding . No prior EGD. Colonoscopy over 10 years back.
-Acute on chronic hyponatremia
-EtOH abuse
-CT findings showing concern for possible peptic ulcer disease with adjacent inflammation of the duodenum
-History of DVT on Eliquis. Last dose 10/29
plan
Continue monitor H&H
PPI twice daily
Continue iron supplementation
Will start with EGD after Eliquis washout. Likely Friday
Considering current admission with severe hyponatremia/seizure we will hold off on colonoscopy with bowel prep. Patient requires outpatient follow-up ( once sodium stabilizes we will schedule for colonoscopy)
Original Note:
Consultation
-
Date/Time Consultation Requested: 10/31/23
Date/Time Consultation Performed: 10/31/23 @ 11:00
Requesting Provider: Dr. Reid
Performing Provider: CANDELARIA Lizarraga; Dr. Helton
Reason for Consultation: anemia, ?GI bleed on eliquis
Medical History
Chief Complaint / HPI
Chief Complaint: fall, LOC, nausea, vomiting
History of Present Illness:
The patient is a 63-year-old male with a past medical history significant for hypertension, GERD, daily alcohol use, severe peripheral artery disease requiring right below the knee amputation, history of DVT on Eliquis, paroxysmal atrial
fibrillation, chronic hyponatremia, anemia, who presented to the ER with nausea and vomiting, found to have hyponatremia with a witnessed seizure. We are being asked to evaluate for possible GI bleed with iron deficiency anemia and dark stools with
history of alcohol use. Upon review of admitting records, he was found to have severe hyponatremia and had a witnessed seizure. His sodium on admission was 116 and he received hypertonic saline with nephrology following. His sodium level did
gradually improve thought to be secondary to SIADH. He did undergo neurology evaluation for seizure activity, with MRI of the brain which showed no acute abnormalities. He did also have a CT of the abdomen pelvis on admission which did show
inflammation of the second portion of the duodenum concerning for possible peptic ulcer disease and was started on PPI twice daily. He was also found to be anemic and iron deficient was started on IV iron, which we are being asked to evaluate for
now. The patient admits that he has a recent dental implants placed. He subsequently he developed nausea and vomiting. He notes 3 days after the implants were put in he had been vomiting some blood and notes that he likely was swallowing blood.
He was unable to keep much down and started to feel unwell. He reports a history of low sodium levels and had started taking sodium tablets at home but he continued to feel unwell, therefore his friend had advised him to go to the emergency room.
He notes he did have a fall prior to admission as well. He denies any obvious signs of bleeding. He denies any overt constipation or diarrhea. He denies any melena or hematochezia, but does note that his stools had been darker yesterday. He had a
normal brown bowel movement today. He reports being treated for acid reflux when he was younger and has had some increased symptoms lately but denies any significant abdominal pain and does not use anti-acid medications outpatient. Upon vomiting at
home he does note he did have some dark emesis but no bright red blood. He has had no further vomiting since admission. He admits he may have had a slight fever at home but denies any chills. He otherwise denies any shortness of breath, chest
pain, dysphagia, odynophagia, significant weight loss, or loss of appetite. He denies any history of GI bleed. He denies use of NSAIDs. His last dose of Eliquis was yesterday at 8 PM. He does admit to daily alcohol use anywhere from 3-6 beers
daily which she has been doing for many years chronically. He denies any prior diagnosis of liver disease or cirrhosis. He has never had an upper endoscopy. He reports his last colonoscopy was at least 10 years ago and was told he had polyps at
that time, but has not followed up. He denies any family history of GI cancers or disorders, but reports his brother had some surgery of his ?Esophagus. Labs reviewed today showed a hemoglobin of 8.5, Sodium 132, potassium 4.3, BUN 5, creatinine
0.6. He is being followed by nephrology. He is also being followed by pulmonary for CT chest findings as noted below. He has not received any blood transfusions this admission.
Past Medical History
Past Medical History: Arrhythmias (Paroxysmal atrial fibrillation), GERD, HTN, Hypercholesterolemia and Other (Daily alcohol use, cigarette use, DVT on Eliquis, peripheral artery disease)
Past Surgical History: Orthopedic (Right below the knee amputation, open thrombectomy of the right common femoral artery, right posterior tibial artery, with subsequent femoropopliteal bypass), Tonsilectomy and Other (jaw surgery, teeth extraction
with dental implants)
Social History
Tobacco: Former Smoker (quick 5 weeks ago)
Alcohol: Daily (3-6 beers chronically for many years)
Drug: None
Family History
Family History: Reviewed & Not Pertinent and Other (brother with some upper GI history unclear if cancer or not)
Allergies / Home Medications
Allergy/AdvReac Type Severity Reaction Status Date / Time
pollen extracts Allergy seasonal Verified 11/07/22 16:21
allergies
Medication Instructions Recorded
apixaban 5 mg tablet (Eliquis) 5 mg PO BID Blood clot 09/15/22
prevention/tx #60 tabs
atorvastatin 40 mg tablet 40 mg PO QPM #30 tabs 09/15/22
diltiazem HCl 180 mg capsule,24 180 mg PO DAILY Arrhythmia #30 caps 09/15/22
hr,extended release
valsartan 80 mg tablet 80 mg PO BID #60 tabs 09/15/22
acetaminophen 325 mg tablet 325 mg PO Q4HPRN PRN mild 02/05/23
pain/CAMPOS/temp> 100.4F
clotrimazole 1 % topical cream 1 applic topical BID Skin Issues 02/05/23
sodium chloride 1,000 mg soluble 1,000 mg PO BID Electrolyte 02/05/23
tablet Repletion
triamcinolone acetonide-l.s.b. 0.1 1 applic topical BID Skin Issues 02/05/23
% topical cream
cyclobenzaprine 10 mg tablet 5 mg PO HS #30 tabs 02/13/23
amoxicillin 875 mg-potassium 1 tab PO BID Infection 10/27/23
clavulanate 125 mg tablet
Review of Systems
-
History Source: Patient
Constitutional: Reports Fever
EENT: Reports No Symptoms
Respiratory: Reports No Symptoms
Cardiac: Reports No Symptoms
Abdomen/GI: Reports Nausea, Vomiting and Other (dark stools)
: Reports No Symptoms
Neurological: Reports No Symptoms
Vital Signs
Temp Pulse Resp BP Pulse Ox
98.0 F 79 16 141/74 100
10/31/23 07:35 10/31/23 07:35 10/31/23 07:35 10/31/23 07:35 10/31/23 07:35
Physical Exam
Exam
General: No Apparent Distress, Comfortable and Other (chronically ill appearing male in NAD)
HEENT: Normocephalic, Anicteric and Atraumatic
Respiratory: Clear
Cardiac: S1/S2 and Regular Rhythm
GI: Soft, Non Tender, Non Distended and Normal Bowel Sounds
Rectal: Deferred by Provider
Musculoskeletal: No Edema and Other (right BKA)
Skin: Warm, Dry and Other (scattered scabs/abrasions to arms)
Neuro: Awake, Alert and Oriented
Psych: Calm
Results
WBC 7.1 10^3/uL (4.8-10.8) 10/31/23 05:31
Hgb 8.5 g/dL (13.0-18.0) L 10/31/23 08:38
Hct 24.6 % (39.0-52.0) L 10/31/23 08:38
MCV 92.7 fL (80.0-94.0) 10/31/23 05:31
Plt Count 429 10^3/uL (130-400) H 10/31/23 05:31
Absolute Neuts (auto) 7.0 10^3/uL (1.4-6.5) H 10/26/23 20:38
Sodium 132 mmol/L (135-145) L 10/31/23 05:31
Potassium 4.3 mmol/L (3.5-5.1) 10/31/23 05:31
Chloride 106 mmol/L (98-107) 10/31/23 05:31
Carbon Dioxide 22 mmol/L (22-30) 10/31/23 05:31
BUN 5 mg/dl (9-20) L 10/31/23 05:31
Creatinine 0.6 mg/dL (0.7-1.3) L 10/31/23 05:31
Calcium 8.6 mg/dl (8.4-10.2) 10/31/23 05:31
Total Bilirubin 0.8 mg/dl (0.2-1.3) 10/26/23 20:38
AST 51 U/L (17-59) 10/26/23 20:38
ALT 37 U/L (0-50) 10/26/23 20:38
Alkaline Phosphatase 68 U/L (38-126) 10/26/23 20:38
Lipase 145 U/L (23-300) 10/26/23 20:38
Diagnostic Image Results:
10/26/2023 CT chest/abdomen/pelvis w/out contrast: IMPRESSION:
'CHEST:
1. � Acute nondisplaced fracture of the right lateral 10th rib.
2. � Multiple moderate-sized regions of ground-glass opacity in the left upper and lower lobes and small number of ground-glass opacities in the right lower lobe. Diagnostic possibilities are (1) acute viral or atypical bacterial pneumonia, (2) an
acute inflammatory pneumonitis, or (3) acute pulmonary hemorrhage/vasculitis.
3. � 2.9 mm solid pulmonary nodule in the right lower lobe. If the patient is considered high risk, a follow-up chest CT examination in 12 months is recommended.
ABDOMEN and PELVIS:
1. � Moderate circumferential wall thickening and submucosal edema in the proximal 2nd portion of the DUODENUM which is likely secondary to acute inflammatory disease with PEPTIC ULCER DISEASE a strong diagnostic possibility.
2. � Small spleen.
3. � Moderate calcific atherosclerotic plaque in the abdominal aorta.
4. � Mild diffuse urinary bladder wall thickening which is probably secondary to chronic outlet obstruction.
5. � Mildly enlarged prostate gland.
6. � Previous bilateral inguinal hernia repair.'
Prior GI Procedures:
EGD: none
Colonoscopy: remote hx >10 years ago, polyps removed (done in [facility])
Assessment / Plan
-
The patient is a 63-year-old male with a past medical history significant for hypertension, GERD, daily alcohol use, severe peripheral artery disease requiring right below the knee amputation, history of DVT on Eliquis, paroxysmal atrial
fibrillation, chronic hyponatremia, anemia, who presented to the ER with nausea and vomiting, found to have hyponatremia with a witnessed seizure. We are being asked to evaluate for possible GI bleed with iron deficiency anemia and dark stools with
history of alcohol use. Hospital course as noted above, with severe hyponatremia and witnessed seizure. Improved clinically with improved sodium levels being followed by nephrology. He has had ongoing anemia this admission, which appears chronic.
He does have iron deficiency and was started on IV iron. He has had intermittent dark stools, but currently brown per patient. He denies use of NSAIDs. His renal function is normal. He does use alcohol on a daily basis but with normal LFTs and
no abnormal liver findings on CT imaging. He did have some nausea and vomiting prior to admission and reports some coffee-ground emesis, along with CT findings of duodenal inflammation concern for possible peptic ulcer disease. His Eliquis has
been held as of yesterday evening.
Problem list:
-Acute on chronic normocytic anemia
-Acute on chronic hyponatremia
-Daily alcohol use
-Iron deficiency
-CT findings showing concern for possible peptic ulcer disease with adjacent inflammation of the duodenum
-Follow-up with right lateral rib fracture on CT
-2.9 mm pulmonary nodule, and groundglass opacities bilateral lungs
-History of DVT on Eliquis
Other pertinent medical history:
-GERD
-Hypertension
-Severe peripheral artery disease status post right below the knee amputation
-Paroxysmal atrial fibrillation
-Hyperlipidemia
Recommendations:
-Etiology of iron deficiency anemia possibly secondary to acute on chronic GI blood loss secondary to peptic ulcer disease versus erosive gastritis versus gastropathy with chronic alcohol use versus other.
-Currently with no ongoing or obvious signs of gross bleeding, but would benefit from having an endoscopy for further evaluation given his CT findings. Timing to be determined by Dr. Helton. Tentative plan for Friday.
-Would continue twice daily PPI IV
-Avoid NSAID
-Hold Eliquis for now
-Trend H&H and transfuse as needed
-He was started on IV iron by the medical team
-He should also have an eventual colonoscopy, which likely can be done outpatient
-Nephrology is following monitoring his sodium levels
-I advised him he should abstain from drinking alcohol going forward especially since he is on a blood thinner. Due to chronicity of alcoholism I advised this and also because severe liver disease.
-Will follow
-
-
Thank you for consultation and allowing me to participate in the patient's care. Please call the commercial sales consultant GI physician during the after hours with any questions or concerns.
--- NOTE | 2023-10-31 14:14 | PTCARENOTE ---
Patient OOb with walker and prosthesis with a steady gait. Patient has no c/o pain, voids clear yellow urine in urinal, tolerating diet and compliant with fluid restriction. Call moss in reach friend at bedside.
[2023-10-31 15:27] VITALS: BP 123/56
--- NOTE | 2023-10-31 17:25 | CM ---
PT and OT has no skilled PT/OT needs.
Friend Ivonne to transport at discharge.
PLAN D/C plan: Home no needs.
[2023-10-31] MEDS: LIPITOR 40 MG PO (18:00)
[2023-10-31] MEDS: MELATONIN 3 MG PO (21:30)
[2023-10-31 23:43] VITALS: BP 104/49
[2023-11-01] VITALS (7 sets, daily range): BP systolic 109–132; BP diastolic 56–68; BMI 19.4
[2023-11-01 06:40] LABS: Hemoglobin 7.1 g/dL (13.0-18.0); Mean Corpuscular Hgb 32.1 pg (27.0-31.0); Mean Corpuscular Volume 94.6 fL (80.0-94.0); Mean Platelet Volume 9.8 fL (7.4-10.4); Platelet Count 479 10^3/uL (130-400); Red Blood Cell Count 2.21 10^6/uL (4.70-6.10); Red Cell Dist. Width 13.8 % (11.5-14.5); White Blood Cell Count 9.8 10^3/uL (4.8-10.8)
[2023-11-01 06:43] LABS: Hematocrit 20.9 % (39.0-52.0)
[2023-11-01 07:03] LABS: Blood Urea Nitrogen 4 mg/dl (9-20); Calcium 8.4 mg/dl (8.4-10.2); Carbon Dioxide 23 mmol/L (22-30); Chloride 103 mmol/L (98-107); Estimated Creatinine Clearance 91 ml/min; Glucose 94 mg/dl (70-99); Magnesium 1.5 mg/dl (1.6-2.3); Phosphorus 3.9 mg/dl (2.5-4.5); Potassium 3.9 mmol/L (3.5-5.1); Sodium 129 mmol/L (135-145); eGFR > 60.00
--- NOTE | 2023-11-01 07:17 | W.PN.HOSP.TC ---
Today's Communication/Plan
-
cont IV iron supplemenation
transfuse 1PRBC for goal Hgb>7.5 given possible GIB
cont hold Eliquis, last dose evening 10/29
cont Hyponatremia mgmt as per Nephro
Planned for Colonoscopy Mon as per GI
Assessment / Plan
Assessment / Plan
Physical Exam
General: No Apparent Distress, Conversant
HEENT: NormoCephalic, Anicteric and Moist mucous membranes
Respiratory: Clear; No Wheezes, Rales or Rhonchi
Cardiac: S1/S2 and Regular Rhythm
GI: Soft, Non Tender and Non Distended
Musculoskeletal: s/p RLE BKA
Skin: Ecchymosis Rt elbow numerous small excoriations upper ext's
Neuro: Awake Alert Conversant
Psych: Calm
Severe symptomatic hyponatremia - corrected Na 117 for BG 168
Hypochloremic + severe hypokalemia + Normal renal function
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
Possible Chronic Hyponatremia w/o SIADH
- 3%� Hypertonic saline� @ 30cc/hr per Renal completed
- Potassium repleted
- Ur Osm, Ur Na noted
- FR� 40 oz
- on ROD HANGER Na Cl tabs
- Trend Na
- monitor ortho VSS
- Renal consult appreciated
Witnessed brief Sz� like activity for x 1 min @ ER - RN� described as getting very stiff and rolling both eyes up when he sit up with assistance - s/p Ativan at ER
Partial complex Sz ?
Reports� vague HX sz per patient
Diff etiology- Symptomatic hyponatremia (more likely at this time) vs acute ETOH WDS (less likely/ruled out)
- NEG HCT for acute process
- resolved with prn IV Ativan
- correct Na� with 3%� Hypertonic saline� @ 30cc/hr per Renal
- Neuro consult appreciated
-MR Brain no acute abn's Eliquis continued
slight compression of the anterior cervical spinal cord C3-4 from disc/osteophyte complex as noted on MRI, nonsignificant finding at this time
At risk for ETOH WDS
ETOH use disorder
-No significant withdrawal symptoms >48 h, MSAS protocol discontinued
- fall precautions
- Psych consult appreciated
Acute N/V� DDx: ETOH ralated� Gastritis vs. Viral gastritis
CT abd/pelvis 2nd portion duodenum inflammation suggestive Peptic Ulcer Disease likely 2/2 alcohol use
-PPI BID started, cont
Anemia
Severe Iron deficiency Anemia
Anemia of Chronic Disease
B12 wnl
-IV iron supplementation started
-Anemia persists, patient relates hx dark stools though appears resolved at this time
-Eliquis placed on hold, last dose evening 10/29
-10/31 1PRBC transfused for Hgb 7.1 goal >7.5 given concern GIB
GI eval appreciated EGD 10/31
- LA Grade B esophagitis.
- Small hiatal hernia.
- Gastritis.
- Non-bleeding gastric ulcers with no stigmata of bleeding. Biopsied.
- Duodenitis.
- Normal second portion of the duodenum.
Rpt follow-up EGD in 3 mo recommended
Protonix 40 mg PO BID 8 wks then daily afterwards
Colonoscopy planned for 11/02
Low back pain s/p fall
Ecchymoses on Rt elbow s/p fall
Fall and LOC at home - syncope vs Sz vs Postural hypotension
- XR Lx spine appreciated no acute fracture
- XR Rt elbow appreciated no acute fracture
- CT chest appreciated Acute nondisplaced fracture of the right lateral 10th rib
- fall precaution
-pain control
CT chest appreciated
-2.9 mm solid pulmonary nodule in the right lower lobe, [address] recommended
-�Multiple moderate-sized regions of ground-glass opacity in the left upper and lower lobes and small number of ground-glass opacities in the right lower lobe, unclear significance.
-Pulm eval appreciated
Insomnia
-melatonin HS, Benadryl PRN
Recent Dental Implant
-cont home Augmentin
moderate protein calorie malnutrition
Pre existing conditions ROD HANGER
pAfib hx DVT on Eliquis
� Essential HTN: cont valsartan/diltiazem
� Tobacco abuse disorder: Counseled on smoking cessation
� Insomnia: cont melatonin, Benadryl, trazodone
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
� HX right SFA occlusion status post lysis in 2016
� GERD: cont PPI
DVT Px: Eliquis on hold last dose 10/29 evening concern GIB
Code: Full code
PT/OT eval appreciated no skilled needs, patient baseline functional status
I spent a total of 55 minutes with the patient or on the floor. More than 50% of this time involved counseling and coordination of care.
Anticipated Discharge: 24 - 48 hours
Subjective/Interval History
-
Date of Service: November 01, 2023
no acute distress. reports feeling well. denies new acute issues at this time.
Objective Data
-
Labs:
Laboratory Results
11/01/23
06:12
WBC 9.8
Hgb 7.1 L
Hct 20.9 L*
Plt Count 479 H
Sodium 129 L
Potassium 3.9
Chloride 103
Carbon Dioxide 23
BUN 4 L
Creatinine 0.6 L
Glucose 94
Calcium 8.4
Vital Signs:
Vital Signs
Temp Pulse Resp BP Pulse Ox
98.3 F 72 14 104/49 99
10/31/23 23:43 10/31/23 23:43 10/31/23 23:43 10/31/23 23:43 10/31/23 23:43
I&O
10/31/23 11/01/23 11/02/23
06:59 06:59 06:59
Intake Total 480 / 480 1140 / 1140
Output Total 1680 / 1680
Balance -1200 / -1200 1140 / 1140
[2023-11-01] MEDS: AUGMENTIN 875 MG/125 MG 1 TABLET PO ×2 (08:12→19:43)
[2023-11-01] MEDS: FOLVITE 1 MG PO (08:13)
[2023-11-01] MEDS: VITAMIN B1 100 MG PO ×2 (08:13→19:44)
[2023-11-01] MEDS: PROTONIX 40 MG PO ×2 (08:13→19:43)
[2023-11-01] MEDS: SODIUM CHLORIDE 1 GRAM PO ×2 (08:13→19:43)
[2023-11-01] MEDS: DIOVAN PO (08:13)
[2023-11-01] MEDS: CARDIZEM CD PO (08:14)
--- NOTE | 2023-11-01 08:25 | PTCARENOTE ---
GI lab called for report and requested pt. to be sent down for EGD. GI lab nurse made aware pt. ordered unit PRBC for HCT 20.9. GI lab nurse requested blood be given after procedure. Pt. updated with plan. Transport called to take pt.to GI lab.
--- NOTE | 2023-11-01 09:36 | W.PN.UPDATE ---
Update Note
Progress Note Update
Patient would like to have colonoscopy inpatient . Will get nephrology clearance for bowel prep tomorrow for colonoscopy on Friday.
[2023-11-01] MEDS: MIRALAX 17 GRAMS PO (11:14)
--- NOTE | 2023-11-01 14:25 | W.PN.NEPH.PH ---
Today's Communication / Plan
-
Maintain fluid restrict
Continue salt tablet
Assessment/Plan
-
Impression:
Symptomatic hyponatremia with seizure (SIADH)
History of atrial fibrillation
History of profound peripheral vascular disease
History of hypertension
History of hypokalemia
Status post fall with subsequent nondisplaced fracture of right lateral 10th rib
Anemia
History of right BKA
Plan:
Sodium at 129 on fluid restriction and sodium chloride tablet
Patient will be cleared for endoscopy and colonoscopy on Friday
Will provide Samsca as needed
-Fluid restriction 1200cc to continue
BP stable on home meds
normal TSH and cortisol
IV fe per primary
hgb down to 7.1
on d/c will need BMP with PCP in 1week
-
-
Date of Service: November 01, 2023
CC / HPI / ROS
-
Chief Complaint:
Hyponatremia
History of Present Illness:
Serum sodium at 129 post samsca 10/28 and 10/29
Hemodynamically stable, mild tachy specially on exertion
no fever
Review of Systems:
non oliguric
weights stable
no chest pain or sob
Labs
-
Labs:
WBC 9.8 10^3/uL (4.8-10.8) 11/01/23 06:12
RBC 2.21 10^6/uL (4.70-6.10) L 11/01/23 06:12
Hgb 7.1 g/dL (13.0-18.0) L 11/01/23 06:12
Hct 20.9 % (39.0-52.0) L* 11/01/23 06:12
Plt Count 479 10^3/uL (130-400) H 11/01/23 06:12
Sodium 129 mmol/L (135-145) L 11/01/23 06:12
Potassium 3.9 mmol/L (3.5-5.1) 11/01/23 06:12
Chloride 103 mmol/L (98-107) 11/01/23 06:12
Carbon Dioxide 23 mmol/L (22-30) 11/01/23 06:12
BUN 4 mg/dl (9-20) L 11/01/23 06:12
Creatinine 0.6 mg/dL (0.7-1.3) L 11/01/23 06:12
eGFR > 60.00 11/01/23 06:12
Glucose 94 mg/dl (70-99) 11/01/23 06:12
Calcium 8.4 mg/dl (8.4-10.2) 11/01/23 06:12
Phosphorus 3.9 mg/dl (2.5-4.5) 11/01/23 06:12
Albumin 3.7 g/dl (3.5-5.0) 10/26/23 20:38
Physical Exam
-
Vital Signs:
Vital Signs
Temp Pulse Resp BP Pulse Ox
99.1 F 81 18 121/61 100
11/01/23 13:26 11/01/23 13:26 11/01/23 13:26 11/01/23 13:26 11/01/23 07:10
Cardiovascular:: Regular rate and rhythm
Respiratory:: Bilateral: CTA
Lung Excursion:: Normal
Abdomen:: Nontender and Soft
Bowel Sounds:: Normal
Extremity Edema:: None: Bilateral:
Madrigal Catheter: No
[2023-11-01] MEDS: FERRLECIT 110 MG IV (14:29)
[2023-11-01] MEDS: LIPITOR 40 MG PO (17:33)
[2023-11-01] MEDS: DIOVAN 80 MG PO (19:44)
[2023-11-02] MEDS: MELATONIN PO ×2 (00:01→23:20)
[2023-11-02 05:07] VITALS: BMI 19.3
--- NOTE | 2023-11-02 06:57 | W.PN.HOSP.TC ---
Today's Communication/Plan
-
transfuse 1PRBC for goal Hgb>7.5 given possible GIB
cont hold Eliquis, last dose evening 10/29
cont Hyponatremia mgmt as per Nephro
Bowel Prep NPO after midnight for Colonoscopy Mon as per GI
Replete Mg
Assessment / Plan
Assessment / Plan
Physical Exam
General: No Apparent Distress, Conversant
HEENT: NormoCephalic, Anicteric and Moist mucous membranes
Respiratory: Clear; No Wheezes, Rales or Rhonchi
Cardiac: S1/S2 and Regular Rhythm
GI: Soft, Non Tender and Non Distended
Musculoskeletal: s/p RLE BKA
Skin: Ecchymosis Rt elbow numerous small excoriations upper ext's
Neuro: Awake Alert Conversant
Psych: Calm
Severe symptomatic hyponatremia - corrected Na 117 for BG 168
Hypochloremic + severe hypokalemia + Normal renal function
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
Possible Chronic Hyponatremia w/o SIADH
- 3%� Hypertonic saline� @ 30cc/hr per Renal completed
- Potassium repleted
- Ur Osm, Ur Na noted
- FR� 40 oz
- on LEACHER Na Cl tabs
- Trend Na appears stable at this time 129,130
- Renal consult appreciated
Hypomagnesemia
-monitor and replete as necessary
Witnessed brief Sz� like activity for x 1 min @ ER - RN� described as getting very stiff and rolling both eyes up when he sit up with assistance - s/p Ativan at ER
Partial complex Sz ?
Reports� vague HX sz per patient
Diff etiology- Symptomatic hyponatremia (more likely at this time) vs acute ETOH WDS (less likely/ruled out)
- NEG HCT for acute process
- resolved with prn IV Ativan
- correct Na� with 3%� Hypertonic saline� @ 30cc/hr per Renal
- Neuro consult appreciated
-MR Brain no acute abn's Eliquis continued
slight compression of the anterior cervical spinal cord C3-4 from disc/osteophyte complex as noted on MRI, nonsignificant finding at this time
At risk for ETOH WDS
ETOH use disorder
-No significant withdrawal symptoms >48 h, MSAS protocol discontinued
- fall precautions
- Psych consult appreciated
Acute N/V� DDx: ETOH ralated� Gastritis vs. Viral gastritis
CT abd/pelvis 2nd portion duodenum inflammation suggestive Peptic Ulcer Disease likely 2/2 alcohol use
-PPI BID started, cont 8 weeks then daily as per GI
Anemia
Severe Iron deficiency Anemia
Anemia of Chronic Disease
B12 wnl
-IV iron supplementation completed 5 days, cont with oral iron supplementation, repeat Iron studies in 1 month recommended
-Anemia persisted, patient related hx dark stools
-Eliquis placed on hold, last dose evening 10/29
-10/31 1PRBC transfused for Hgb 7.1 goal >7.5 given concern GIB, Hgb since improved to 9.0
-cont to monitor H&H
GI eval appreciated EGD 10/31
- LA Grade B esophagitis.
- Small hiatal hernia.
- Gastritis.
- Non-bleeding gastric ulcers with no stigmata of bleeding. Biopsied.
- Duodenitis.
- Normal second portion of the duodenum.
Rpt follow-up EGD in 3 mo recommended
Protonix 40 mg PO BID 8 wks then daily afterwards
Colonoscopy planned for Mon 11/02
Bowel Prep NPO after midnight as per Gi
Low back pain s/p fall
Ecchymoses on Rt elbow s/p fall
Fall and LOC at home - syncope vs Sz vs Postural hypotension
- XR Lx spine appreciated no acute fracture
- XR Rt elbow appreciated no acute fracture
- CT chest appreciated Acute nondisplaced fracture of the right lateral 10th rib
- fall precaution
-pain control
CT chest appreciated
-2.9 mm solid pulmonary nodule in the right lower lobe, [address] recommended
-�Multiple moderate-sized regions of ground-glass opacity in the left upper and lower lobes and small number of ground-glass opacities in the right lower lobe, unclear significance.
-Pulm eval appreciated
Insomnia
-melatonin HS, Benadryl PRN
Recent Dental Implant
-cont home Augmentin
moderate protein calorie malnutrition
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
pAfib hx DVT on Eliquis
� Essential HTN: cont valsartan/diltiazem
� Tobacco abuse disorder: Counseled on smoking cessation
� Insomnia: cont melatonin, Benadryl, trazodone
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
� HX right SFA occlusion status post lysis in 2016
� GERD: cont PPI
DVT Px: Eliquis on hold last dose 10/29 evening concern GIB, encourage ambulation with prosthetic and walker, resume Eliquis when appropriate as per Gi
Code: Full code
PT/OT eval appreciated no skilled needs, patient baseline functional status
I spent a total of 55 minutes with the patient or on the floor. More than 50% of this time involved counseling and coordination of care.
Anticipated Discharge: 24 - 48 hours
Subjective/Interval History
-
Date of Service: November 02, 2023
No acute distress. Frustrated with length of stay but wants to complete Colonoscopy Friday. Otherwise denies any new acute issues at this times. Reports overall feeling well.
Objective Data
-
Labs:
Laboratory Results
11/02/23
06:37
WBC Pending
Hgb Pending
Hct Pending
Plt Count Pending
Sodium Pending
Potassium Pending
Chloride Pending
Carbon Dioxide Pending
BUN Pending
Creatinine Pending
Glucose Pending
Calcium Pending
Vital Signs:
Vital Signs
Temp Pulse Resp BP Pulse Ox
98.6 F 81 18 132/68 97
11/01/23 23:04 11/01/23 23:04 11/01/23 23:04 11/01/23 23:04 11/01/23 23:04
I&O
10/31/23 11/01/23 11/02/23
06:59 06:59 06:59
Intake Total 480 / 480 1140 / 1140 1370 / 1370
Output Total 1680 / 1680 125 / 125
Balance -1200 / -1200 1140 / 1140 1245 / 1245
[2023-11-02 07:00] VITALS: BP 143/71
[2023-11-02 07:46] LABS: Hematocrit 26.3 % (39.0-52.0); Mean Corp Hgb Conc. 34.2 g/dL (33.0-37.0); Mean Corpuscular Hgb 31.8 pg (27.0-31.0); Mean Corpuscular Volume 92.9 fL (80.0-94.0); Mean Platelet Volume 9.5 fL (7.4-10.4); Platelet Count 464 10^3/uL (130-400); Red Blood Cell Count 2.83 10^6/uL (4.70-6.10); Red Cell Dist. Width 14.3 % (11.5-14.5); White Blood Cell Count 10.6 10^3/uL (4.8-10.8)
[2023-11-02] MEDS: PROTONIX 40 MG PO ×2 (08:14→19:56)
[2023-11-02] MEDS: CARDIZEM CD 180 MG PO (08:14)
[2023-11-02] MEDS: FOLVITE 1 MG PO (08:14)
[2023-11-02] MEDS: DIOVAN 80 MG PO ×2 (08:14→19:57)
[2023-11-02] MEDS: VITAMIN B1 100 MG PO ×2 (08:14→19:57)
[2023-11-02] MEDS: SODIUM CHLORIDE 1 GRAM PO ×2 (08:14→19:56)
[2023-11-02] MEDS: AUGMENTIN 875 MG/125 MG 1 TABLET PO ×2 (08:14→19:57)
[2023-11-02] MEDS: MIRALAX 17 GRAMS PO (08:15)
[2023-11-02 08:36] LABS: Blood Urea Nitrogen 7 mg/dl (9-20); Calcium 8.6 mg/dl (8.4-10.2); Carbon Dioxide 23 mmol/L (22-30); Chloride 100 mmol/L (98-107); Estimated Creatinine Clearance 91 ml/min; Glucose 74 mg/dl (70-99); Phosphorus 4.1 mg/dl (2.5-4.5); Potassium 3.6 mmol/L (3.5-5.1); Sodium 130 mmol/L (135-145); eGFR > 60.00
[2023-11-02 09:38] LABS: Magnesium 1.5 mg/dl (1.6-2.3)
--- NOTE | 2023-11-02 10:34 | W.PN.UPDATE ---
Update Note
Progress Note Update
Discussed with nephrology . ok for colonoscopy tomorrow
Bowel prep today
NPO after MN
correct electrolytes as per medical team/ nephrology
[2023-11-02] MEDS: MAGNESIUM SULFATE 50 IV (10:49)
--- NOTE | 2023-11-02 12:32 | W.PN.NEPH.PH ---
Today's Communication / Plan
-
Observe on fluid restriction and salt tablet
Stable for colonoscopy tomorrow with prep today
Assessment/Plan
-
Impression:
Symptomatic hyponatremia with seizure (SIADH)
History of atrial fibrillation
History of profound peripheral vascular disease
History of hypertension
History of hypokalemia
Status post fall with subsequent nondisplaced fracture of right lateral 10th rib
Anemia
History of right BKA
Plan:
Sodium at 130 on fluid restriction and sodium chloride tablet
Patient will be cleared for endoscopy and colonoscopy on Friday
Will provide Samsca as needed
Fluid restriction 1200cc to continue
BP stable on home meds
normal TSH and cortisol
IV fe per primary
Hemoglobin up to 9
on d/c will need BMP with PCP in 1week
-
-
Date of Service: November 02, 2023
CC / HPI / ROS
-
Chief Complaint:
Hyponatremia
History of Present Illness:
Serum sodium at 130 post samsca 10/28 and 10/29
Remains now on sodium tablets and fluid restriction for hyponatremia
Hemodynamically stable, mild tachy specially on exertion
no fever
Review of Systems:
non oliguric
weights stable
no chest pain or sob
Labs
-
Labs:
WBC 10.6 10^3/uL (4.8-10.8) 11/02/23 06:37
RBC 2.83 10^6/uL (4.70-6.10) L 11/02/23 06:37
Hgb 9.0 g/dL (13.0-18.0) L D 11/02/23 06:37
Hct 26.3 % (39.0-52.0) L 11/02/23 06:37
Plt Count 464 10^3/uL (130-400) H 11/02/23 06:37
Sodium 130 mmol/L (135-145) L 11/02/23 06:37
Potassium 3.6 mmol/L (3.5-5.1) 11/02/23 06:37
Chloride 100 mmol/L (98-107) 11/02/23 06:37
Carbon Dioxide 23 mmol/L (22-30) 11/02/23 06:37
BUN 7 mg/dl (9-20) L 11/02/23 06:37
Creatinine 0.6 mg/dL (0.7-1.3) L 11/02/23 06:37
eGFR > 60.00 11/02/23 06:37
Glucose 74 mg/dl (70-99) 11/02/23 06:37
Calcium 8.6 mg/dl (8.4-10.2) 11/02/23 06:37
Phosphorus 4.1 mg/dl (2.5-4.5) 11/02/23 06:37
Albumin 3.7 g/dl (3.5-5.0) 10/26/23 20:38
Physical Exam
-
Vital Signs:
Vital Signs
Temp Pulse Resp BP Pulse Ox
98.2 F 77 18 143/71 99
11/02/23 07:00 11/02/23 08:14 11/02/23 07:00 11/02/23 08:14 11/02/23 07:00
Cardiovascular:: Regular rate and rhythm
Respiratory:: Bilateral: CTA
Lung Excursion:: Normal
Abdomen:: Nontender
Bowel Sounds:: Normal
Extremity Edema:: None: Bilateral:
Madrigal Catheter: No
[2023-11-02] MEDS: FERRLECIT 110 MG IV (14:49)
[2023-11-02 15:00] VITALS: BP 133/61
--- NOTE | 2023-11-02 15:01 | CM ---
Patient bedside on the phone. CM reviewed chart, no skilled PT need. Per Nephrology updated note, stable for colonoscopy tomorrow. CM will continue to follow for discharge planning needs.
Plan; home no needs anticipated.
[2023-11-02] MEDS: NULYTELY SOLUTION 4 LITERS PO (17:21)
[2023-11-02] MEDS: LIPITOR 40 MG PO (17:21)
[2023-11-02] MEDS: TYLENOL 1000 MG PO (23:20)
[2023-11-02] MEDS: BENADRYL 25 MG PO (23:20)
[2023-11-02 23:31] VITALS: BP 136/59
[2023-11-03 04:33] VITALS: BMI 19.2
[2023-11-03 07:00] VITALS: BP 122/60
[2023-11-03] MEDS: FOLVITE 1 MG PO (08:09)
[2023-11-03] MEDS: AUGMENTIN 875 MG/125 MG PO ×2 (08:09→20:37)
[2023-11-03] MEDS: SODIUM CHLORIDE 1 GRAM PO ×2 (08:10→20:48)
[2023-11-03] MEDS: PROTONIX 40 MG PO ×2 (08:10→20:48)
[2023-11-03] MEDS: VITAMIN B1 100 MG PO ×2 (08:11→20:48)
[2023-11-03] MEDS: MIRALAX PO (08:11)
[2023-11-03] MEDS: CARDIZEM CD 180 MG PO (08:11)
[2023-11-03] MEDS: FEOSOL 325 MG PO (08:11)
[2023-11-03] MEDS: DIOVAN 80 MG PO ×2 (08:11→20:48)
[2023-11-03 09:01] LABS: Hematocrit 30.4 % (39.0-52.0); Hemoglobin 10.4 g/dL (13.0-18.0); Mean Corp Hgb Conc. 34.2 g/dL (33.0-37.0); Mean Corpuscular Hgb 32.5 pg (27.0-31.0); Mean Platelet Volume 9.4 fL (7.4-10.4); Platelet Count 492 10^3/uL (130-400); Red Cell Dist. Width 14.5 % (11.5-14.5); White Blood Cell Count 15.2 10^3/uL (4.8-10.8)
[2023-11-03 09:50] LABS: Blood Urea Nitrogen 5 mg/dl (9-20); Calcium 9.1 mg/dl (8.4-10.2); Carbon Dioxide 24 mmol/L (22-30); Chloride 98 mmol/L (98-107); Estimated Creatinine Clearance 91 ml/min; Glucose 73 mg/dl (70-99); Magnesium 2.1 mg/dl (1.6-2.3); Phosphorus 3.9 mg/dl (2.5-4.5); Potassium 4.4 mmol/L (3.5-5.1); Sodium 129 mmol/L (135-145); eGFR > 60.00
--- NOTE | 2023-11-03 11:20 | W.PN.HOSP.TC ---
Today's Communication/Plan
-
C-scope today
nephro recs
monitor post procedure
Assessment / Plan
Assessment / Plan
Physical Exam
General: No Apparent Distress, Conversant
HEENT: NormoCephalic, Anicteric and Moist mucous membranes
Respiratory: Clear; No Wheezes, Rales or Rhonchi
Cardiac: S1/S2 and Regular Rhythm
GI: Soft, Non Tender and Non Distended
Musculoskeletal: s/p RLE BKA
Skin: Ecchymosis Rt elbow numerous small excoriations upper ext's
Neuro: Awake Alert Conversant
Psych: Calm
Severe symptomatic hyponatremia - corrected Na 117 for BG 168
Hypochloremic + severe hypokalemia + Normal renal function
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
Possible Chronic Hyponatremia w/o SIADH
- 3%� Hypertonic saline� @ 30cc/hr per Renal completed
- Potassium repleted
- Ur Osm, Ur Na noted
- FR� 40 oz
- on BUTTON DECORATING MACHINE OPERATOR Na Cl tabs
- Trend Na appears stable at this time 129,130
- Renal consult appreciated
Hypomagnesemia
-monitor and replete as necessary
Witnessed brief Sz� like activity for x 1 min @ ER - RN� described as getting very stiff and rolling both eyes up when he sit up with assistance - s/p Ativan at ER
Partial complex Sz ?
Reports� vague HX sz per patient
Diff etiology- Symptomatic hyponatremia (more likely at this time) vs acute ETOH WDS (less likely/ruled out)
- NEG HCT for acute process
- resolved with prn IV Ativan
- correct Na� with 3%� Hypertonic saline� @ 30cc/hr per Renal
- Neuro consult appreciated
-MR Brain no acute abn's Eliquis continued
slight compression of the anterior cervical spinal cord C3-4 from disc/osteophyte complex as noted on MRI, nonsignificant finding at this time
ETOH use disorder-At risk for ETOH WDS
-No significant withdrawal symptoms >48 h, MSAS protocol discontinued
- fall precautions
- Psych consult appreciated
Acute N/V� DDx: ETOH ralated� Gastritis vs. Viral gastritis
CT abd/pelvis 2nd portion duodenum inflammation suggestive Peptic Ulcer Disease likely 2/2 alcohol use
-PPI BID started, cont 8 weeks then daily as per GI
Anemia
Severe Iron deficiency Anemia
Anemia of Chronic Disease
B12 wnl
-IV iron supplementation completed 5 days, cont with oral iron supplementation, repeat Iron studies in 1 month recommended
-Anemia persisted, patient related hx dark stools
-Eliquis placed on hold, last dose evening 10/29
-10/31 1PRBC transfused for Hgb 7.1 goal >7.5 given concern GIB, Hgb since improved to 10.4
-cont to monitor H&H
GI eval appreciated EGD 10/31
- LA Grade B esophagitis.
- Small hiatal hernia.
- Gastritis.
- Non-bleeding gastric ulcers with no stigmata of bleeding. Biopsied.
- Duodenitis.
- Normal second portion of the duodenum.
Rpt follow-up EGD in 3 mo recommended
Protonix 40 mg PO BID 8 wks then daily afterwards
Colonoscopy planned for today
Low back pain s/p fall
Ecchymoses on Rt elbow s/p fall
Fall and LOC at home - syncope vs Sz vs Postural hypotension
- XR Lx spine appreciated no acute fracture
- XR Rt elbow appreciated no acute fracture
- CT chest appreciated Acute nondisplaced fracture of the right lateral 10th rib
- fall precaution
-pain control
CT chest appreciated
-2.9 mm solid pulmonary nodule in the right lower lobe, [address] recommended
-�Multiple moderate-sized regions of ground-glass opacity in the left upper and lower lobes and small number of ground-glass opacities in the right lower lobe, unclear significance.
-Pulm eval appreciated
Insomnia
-melatonin HS, Benadryl PRN
Recent Dental Implant
-cont home Augmentin
moderate protein calorie malnutrition
Leukocytosis-?reactive
-remains afebrile. No dysuria or cough. Overall CBC uptrended
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
pAfib hx DVT on Eliquis
� Essential HTN: cont valsartan/diltiazem
� Tobacco abuse disorder: Counseled on smoking cessation
� Insomnia: cont melatonin, Benadryl, trazodone
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
� HX right SFA occlusion status post lysis in 2016
� GERD: cont PPI
DVT Px: Eliquis on hold last dose 10/29 evening concern GIB, encourage ambulation with prosthetic and walker, resume Eliquis when appropriate as per Gi
Code: Full code
PT/OT eval appreciated no skilled needs, patient baseline functional status
Anticipated Discharge: Today
Subjective/Interval History
-
Date of Service: November 03, 2023
finished the prep overnight
Objective Data
-
Labs:
Laboratory Results
11/03/23
08:27
WBC 15.2 H
Hgb 10.4 L
Hct 30.4 L
Plt Count 492 H
Sodium 129 L
Potassium 4.4
Chloride 98
Carbon Dioxide 24
BUN 5 L
Creatinine 0.5 L
Glucose 73
Calcium 9.1
Vital Signs:
Vital Signs
Temp Pulse Resp BP Pulse Ox
98.1 F 84 18 121/60 99
11/03/23 07:00 11/03/23 08:11 11/03/23 07:00 11/03/23 08:11 03/25/24 07:00
I&O
11/02/23 11/03/23 11/04/23
06:59 06:59 06:59
Intake Total 1370 / 1370 1120 / 1120
Output Total 125 / 125 775 / 775
Balance 1245 / 1245 345 / 345
Data Reviewed
-
Total Time Spent with Patient (in minutes): 55
--- NOTE | 2023-11-03 11:47 | W.PN.NEPH.PH ---
Today's Communication / Plan
-
follow BMP
Assessment/Plan
-
Impression:
Symptomatic hyponatremia with seizure (SIADH)
History of atrial fibrillation
History of profound peripheral vascular disease
History of hypertension
History of hypokalemia
Status post fall with subsequent nondisplaced fracture of right lateral 10th rib
Anemia
History of right BKA
Plan:
continue sodium chloride tablet
Patient cleared for endoscopy and colonoscopy
Will provide Samsca as needed, likely tomorrow
Fluid restriction 1200cc to continue
BP stable on home meds
-
-
Date of Service: November 03, 2023
CC / HPI / ROS
-
Chief Complaint:
Hyponatremia
History of Present Illness:
Serum sodium at 129 post samsca 10/28 and 10/29
Remains now on sodium tablets and fluid restriction for hyponatremia
Hemodynamically stable, mild tachy especially on exertion
no fever
Review of Systems:
non oliguric
weights stable
no chest pain or sob
angry he hasn't had colonoscopy yet
Labs
-
Labs:
WBC 15.2 10^3/uL (4.8-10.8) H 11/03/23 08:27
RBC 3.20 10^6/uL (4.70-6.10) L 11/03/23 08:27
Hgb 10.4 g/dL (13.0-18.0) L 11/03/23 08:27
Hct 30.4 % (39.0-52.0) L 11/03/23 08:27
Plt Count 492 10^3/uL (130-400) H 11/03/23 08:27
Sodium 129 mmol/L (135-145) L 11/03/23 08:27
Potassium 4.4 mmol/L (3.5-5.1) 11/03/23 08:27
Chloride 98 mmol/L (98-107) 11/03/23 08:27
Carbon Dioxide 24 mmol/L (22-30) 11/03/23 08:27
BUN 5 mg/dl (9-20) L 11/03/23 08:27
Creatinine 0.5 mg/dL (0.7-1.3) L 11/03/23 08:27
eGFR > 60.00 11/03/23 08:27
Glucose 73 mg/dl (70-99) 11/03/23 08:27
Calcium 9.1 mg/dl (8.4-10.2) 11/03/23 08:27
Phosphorus 3.9 mg/dl (2.5-4.5) 11/03/23 08:27
Albumin 3.7 g/dl (3.5-5.0) 10/26/23 20:38
Physical Exam
-
Vital Signs:
Vital Signs
Temp Pulse Resp BP Pulse Ox
98.1 F 84 18 121/60 99
11/03/23 07:00 11/03/23 08:11 11/03/23 07:00 11/03/23 08:11 11/03/23 07:00
Cardiovascular:: Regular rate and rhythm
Respiratory:: Bilateral: Coarse
Lung Excursion:: Normal
Abdomen:: Nontender and Soft
Bowel Sounds:: Normal
Extremity Edema:: None: Bilateral:
[2023-11-03 13:07] VITALS: BP 110/51
[2023-11-03 13:15] VITALS: BP 110/43
[2023-11-03 15:00] VITALS: BP 103/56
[2023-11-03] MEDS: LIPITOR 40 MG PO (17:07)
[2023-11-03] MEDS: MELATONIN PO (20:37)
[2023-11-03] MEDS: ELIQUIS 5 MG PO (20:52)
[2023-11-03] MEDS: TYLENOL 1000 MG PO (23:30)
[2023-11-03] MEDS: BENADRYL 25 MG PO (23:30)
[2023-11-03 23:51] VITALS: BP 130/63
[2023-11-04 06:00] VITALS: BMI 19.4
[2023-11-04 07:16] LABS: Blood Urea Nitrogen 6 mg/dl (9-20); Calcium 8.8 mg/dl (8.4-10.2); Carbon Dioxide 23 mmol/L (22-30); Chloride 102 mmol/L (98-107); Estimated Creatinine Clearance 91 ml/min; Glucose 82 mg/dl (70-99); Potassium 3.7 mmol/L (3.5-5.1); Sodium 128 mmol/L (135-145); eGFR > 60.00
[2023-11-04 07:44] VITALS: BP 92/54
[2023-11-04] MEDS: PROTONIX 40 MG PO (08:09)
[2023-11-04] MEDS: VITAMIN B1 100 MG PO (08:09)
[2023-11-04] MEDS: FOLVITE 1 MG PO (08:09)
[2023-11-04] MEDS: MIRALAX 17 GRAMS PO (08:09)
[2023-11-04] MEDS: SODIUM CHLORIDE 1 GRAM PO (08:09)
[2023-11-04] MEDS: CARDIZEM CD 180 MG PO (08:10)
[2023-11-04] MEDS: DIOVAN 80 MG PO (08:10)
[2023-11-04] MEDS: FEOSOL 325 MG PO (08:11)
[2023-11-04] MEDS: ELIQUIS 5 MG PO (08:11)
[2023-11-04] MEDS: AUGMENTIN 875 MG/125 MG PO (08:11)
--- NOTE | 2023-11-04 11:27 | W.PN.HOSP.TC ---
Today's Communication/Plan
-
nephro recs
Restarted eliquis
Assessment / Plan
Assessment / Plan
Physical Exam
General: No Apparent Distress, Conversant
HEENT: NormoCephalic, Anicteric and Moist mucous membranes
Respiratory: Clear; No Wheezes, Rales or Rhonchi
Cardiac: S1/S2 and Regular Rhythm
GI: Soft, Non Tender and Non Distended
Musculoskeletal: s/p RLE BKA
Skin: Ecchymosis Rt elbow numerous small excoriations upper ext's
Neuro: Awake Alert Conversant
Psych: Calm
Severe symptomatic hyponatremia - corrected Na 117 for BG 168
Hypochloremic + severe hypokalemia + Normal renal function
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
Possible Chronic Hyponatremia w/o SIADH
- 3%� Hypertonic saline� @ 30cc/hr per Renal completed
- Potassium repleted
- Ur Osm, Ur Na noted
- FR� 40 oz
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
- Trend Na appears stable at this time 129,130
- may need samsca?
- Nephro recs
Hypomagnesemia
-monitor and replete as necessary
Witnessed brief Sz� like activity for x 1 min @ ER - RN� described as getting very stiff and rolling both eyes up when he sit up with assistance - s/p Ativan at ER
Partial complex Sz ?
Reports� vague HX sz per patient
Diff etiology- Symptomatic hyponatremia (more likely at this time) vs acute ETOH WDS (less likely/ruled out)
- NEG HCT for acute process
- resolved with prn IV Ativan
- correct Na� with 3%� Hypertonic saline� @ 30cc/hr per Renal
- Neuro consult appreciated
-MR Brain no acute abn's Eliquis continued
slight compression of the anterior cervical spinal cord C3-4 from disc/osteophyte complex as noted on MRI, nonsignificant finding at this time
ETOH use disorder-At risk for ETOH WDS
-No significant withdrawal symptoms >48 h, MSAS protocol discontinued
- fall precautions
- Psych consult appreciated
Acute N/V� DDx: ETOH ralated� Gastritis vs. Viral gastritis
CT abd/pelvis 2nd portion duodenum inflammation suggestive Peptic Ulcer Disease likely 2/2 alcohol use
-PPI BID started, cont 8 weeks then daily as per GI
Anemia
Severe Iron deficiency Anemia
Anemia of Chronic Disease
B12 wnl
-IV iron supplementation completed 5 days, cont with oral iron supplementation, repeat Iron studies in 1 month recommended
-Anemia persisted, patient related hx dark stools
-10/31 1PRBC transfused for Hgb 7.1 goal >7.5 given concern GIB, Hgb since improved to 10.4
GI eval appreciated EGD 10/31
- LA Grade B esophagitis.
- Small hiatal hernia.
- Gastritis.
- Non-bleeding gastric ulcers with no stigmata of bleeding. Biopsied.
- Duodenitis.
- Normal second portion of the duodenum.
Rpt follow-up EGD in 3 mo recommended
Protonix 40 mg PO BID 8 wks then daily afterwards. restarted eliquis.
Colonoscopy with no acute finding. WIll need op video capsule endoscopy and Heme eval.
Low back pain s/p fall
Ecchymoses on Rt elbow s/p fall
Fall and LOC at home - syncope vs Sz vs Postural hypotension
- XR Lx spine appreciated no acute fracture
- XR Rt elbow appreciated no acute fracture
- CT chest appreciated Acute nondisplaced fracture of the right lateral 10th rib
- fall precaution
-pain control
CT chest appreciated
-2.9 mm solid pulmonary nodule in the right lower lobe, [address] recommended
-�Multiple moderate-sized regions of ground-glass opacity in the left upper and lower lobes and small number of ground-glass opacities in the right lower lobe, unclear significance.
-Pulm eval appreciated
Insomnia
-melatonin HS, Benadryl PRN
Recent Dental Implant
-cont home Augmentin
moderate protein calorie malnutrition
Leukocytosis-?reactive
-remains afebrile. No dysuria or cough. Overall CBC uptrended
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
pAfib hx DVT on Eliquis
� Essential HTN: cont valsartan/diltiazem
� Tobacco abuse disorder: Counseled on smoking cessation
� Insomnia: cont melatonin, Benadryl, trazodone
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
� HX right SFA occlusion status post lysis in 2016
� GERD: cont PPI
DVT Px: Eliquis
Code: Full code
PT/OT eval appreciated no skilled needs, patient baseline functional status
Anticipated Discharge: Today
Subjective/Interval History
-
Date of Service: November 04, 2023
wants to go home
tolerating diet
Objective Data
-
Labs:
Laboratory Results
11/04/23
06:22
Sodium 128 L
Potassium 3.7
Chloride 102
Carbon Dioxide 23
BUN 6 L
Creatinine 0.5 L
Glucose 82
Calcium 8.8
Vital Signs:
Vital Signs
Temp Pulse Resp BP Pulse Ox
98.2 F 82 16 113/56 100
11/04/23 07:44 11/04/23 08:10 11/04/23 07:44 11/04/23 08:10 11/04/23 07:44
I&O
11/03/23 11/04/23 11/05/23
06:59 06:59 06:59
Intake Total 1120 / 1120 960 / 960
Output Total 775 / 775 825 / 825
Balance 345 / 345 135 / 135
--- NOTE | 2023-11-04 13:26 | W.PN.NEPH.PH ---
Today's Communication / Plan
-
samsca
Assessment/Plan
-
Impression:
Symptomatic hyponatremia with seizure (SIADH)
History of atrial fibrillation
History of profound peripheral vascular disease
History of hypertension
History of hypokalemia
Status post fall with subsequent nondisplaced fracture of right lateral 10th rib
Anemia
History of right BKA
Plan:
continue sodium chloride tablet
Will provide Samsca today
lasix 20mg daily tomorrow
Fluid restriction 1200cc to continue
BP stable on home meds
could be dc from renal standpoint
-
-
Date of Service: November 04, 2023
CC / HPI / ROS
-
Chief Complaint:
Hyponatremia
History of Present Illness:
Serum sodium at 128 stable
Remains now on sodium tablets and fluid restriction for hyponatremia
Hemodynamically stable, mild tachy especially on exertion
no fever
Review of Systems:
non oliguric
weights stable
no chest pain or sob
Labs
-
Labs:
WBC 15.2 10^3/uL (4.8-10.8) H 11/03/23 08:27
RBC 3.20 10^6/uL (4.70-6.10) L 11/03/23 08:27
Hgb 10.4 g/dL (13.0-18.0) L 11/03/23 08:27
Hct 30.4 % (39.0-52.0) L 11/03/23 08:27
Plt Count 492 10^3/uL (130-400) H 11/03/23 08:27
Sodium 128 mmol/L (135-145) L 11/04/23 06:22
Potassium 3.7 mmol/L (3.5-5.1) 03/26/24 06:22
Chloride 102 mmol/L (98-107) 11/04/23 06:22
Carbon Dioxide 23 mmol/L (22-30) 11/04/23 06:22
BUN 6 mg/dl (9-20) L 11/04/23 06:22
Creatinine 0.5 mg/dL (0.7-1.3) L 11/04/23 06:22
eGFR > 60.00 11/04/23 06:22
Glucose 82 mg/dl (70-99) 11/04/23 06:22
Calcium 8.8 mg/dl (8.4-10.2) 11/04/23 06:22
Phosphorus 3.9 mg/dl (2.5-4.5) 11/03/23 08:27
Albumin 3.7 g/dl (3.5-5.0) 10/26/23 20:38
Physical Exam
-
Vital Signs:
Vital Signs
Temp Pulse Resp BP Pulse Ox
98.2 F 82 16 113/56 100
11/04/23 07:44 11/04/23 08:10 11/04/23 07:44 11/04/23 08:10 11/04/23 07:44
Cardiovascular:: Regular rate and rhythm
Respiratory:: Bilateral: Coarse
Lung Excursion:: Normal
Abdomen:: Nontender and Soft
Bowel Sounds:: Normal
Extremity Edema:: None: Bilateral:
[2023-11-04] MEDS: SAMSCA 15 MG PO (13:44)
--- NOTE | 2023-11-04 13:48 | W.DCSUMMARY ---
Discharge Summary
Discharge Data
Date of Admission: 10/26/23
Date of Discharge: 11/04/23
-
Pending Results: No
Hospital Course
63 male past medical history of paroxysmal atrial fibrillation, hypertension, tobacco abuse disorder, insomnia, peripheral arterial disease status post bypass, GERD, moderate protein calorie malnutrition, who had a witnessed seizure-like activity
in the ER. Patient was found to have severe hyponatremia on admission. Nephrology was consulted. Patient received hypertonic saline. Patient sodium slowly uptitrated. Patient with persistent anemia and gastroenterology was consulted. CT
abdomen pelvis with second portion duodenum inflammation suggestive of peptic ulcer disease likely secondary alcohol use. PPI was started. Patient underwent EGD which showed grade B esophagitis, gastritis, nonbleeding gastric ulcer with no
stigmata of bleeding. Duodenitis. Patient underwent colonoscopy which was negative for acute finding. Will need outpatient video capsule endoscopy and hematology evaluation. Hemoglobin stabilized. Patient was also found to pulmonary nodules.
Pulmonary evaluated patient and recommended outpatient follow-up. Patient received multiple dose of Samsca. Patient will be continued on sodium chloride tablets and Lasix was added. Patient stated his baseline sodium is around 128�129. States he
will able to follow-up with primary doctor as outpatient.
Discharge Plan
-
Patient Disposition: Home (Routine Discharge)
Discharge Diagnosis/Procedures: Severe symptomatic hyponatremia
Hypomagnesemia
Seizure
Alcohol use disorder
Acute nausea vomiting
Anemia
Leukocytosis
Condition: Fair
Diet: As tolerated
Additional Diets: Fluid restriction 1200cc
Activity: With assistance and As tolerated
Driving Restrictions: As prior to admission
Blood Work: cbc and bmp in 1 week via primary doctor.
Activity Restrictions/Additional Instructions:
Wound Care Instructions
L arm: clean with soap and water, Bandaid change daily and prn drainage.
follow-up EGD in 3 month recommended
Protonix 40 mg PO twice a day for 8 wks then daily afterwards.
Referrals:
Dev Tatum MD [Family Provider] - in less than 1 week
Jt Helton MD [Active] - None (video capsule endoscopy to complete GI eval for anemia)
Shon Hahn MD [Active] - in two to four weeks
(Dr. Hahn or US MARKETING DIRECTOR
Needs CT chest 3 months after discharge, PFTs, and set up for yearly low-dose lung cancer screening CTs)
Grayson Serrano MD [Active] - None (make appointment for anemia)
Prescriptions:
New
pantoprazole 40 mg Tablet,Delayed Release (Dr/Ec)
40 mg PO BID 30 Days Qty: 60 0RF
ferrous sulfate [FeroSul] 325 mg (65 mg iron) Tablet
325 mg PO DAILY 30 Days Qty: 30 0RF
furosemide 20 mg Tablet
20 mg PO DAILY 30 Days Qty: 30 0RF
Continued
amoxicillin-pot clavulanate 875-125 mg Tablet
1 tab PO BID
atorvastatin 40 mg Tablet
40 mg PO QPM Qty: 30 0RF
diltiazem HCl 180 mg Capsule,Extended Release 24 Hr
180 mg PO DAILY Qty: 30 0RF
valsartan 80 mg Tablet
80 mg PO BID Qty: 60 0RF
Eliquis 5 mg Tablet
5 mg PO BID Qty: 60 0RF
Patient Comments:
08/26/22- patient already took both doses today 08/26/22
clotrimazole 1 % Cream
1 applic TOPICAL BID
triamcinolone acetonide-l.s.b. 0.1 % Cream
1 applic TOPICAL BID
sodium chloride 1,000 mg Tablet,Soluble
1,000 mg PO BID
acetaminophen 325 mg tablet
325 mg PO Q4HPRN PRN (Reason: mild pain/CAMPOS/temp> 100.4F)
cyclobenzaprine 10 mg Tablet
5 mg PO HS Qty: 30 0RF
[2023-11-04 15:05] VITALS: BP 131/59
--- NOTE | 2023-11-04 15:07 | CM ---
MD entered order for discharge.
Spoke with patient he said he was ready for discharge.
He said that sister or friend will drive him home today.
IMM reviewed he said he agrees with dc IMM signed.
Offered VN he declined need
PLAN Home no needs
--- NOTE | 2023-11-10 09:53 | OID.L.PAT ---
Pulmonary Nodule Pat Letter
- -
11/10/23
CHARLI LEVIN
[address] [place] [address]
[place] [address]
Deasunni AUGUSTIN,
A pulmonary nodule was seen on an imaging study done by [facility]. This was reviewed by the [facility] Pulmonary Nodule Advisory Board and the following recommendation was made:
Recommendation: Follow up with a Shop Girl
If you have any questions, please do not hesitate to contact your primary care physician. If you are in need of a Physician, you can go to [email or web address] and click on 'Find a Provider'. Type 'Family Medicine' in the search.
Oncology Nurse Navigator
[facility]
[phone]
--- NOTE | 2023-11-10 09:53 | OID.L.REC ---
Pulmonary Nodule Follow Up
- Recommendation
11/10/23
Pulmonary Nodule Review Recommendations
Your patient, CHARLI LEVIN, had a pulmonary nodule seen on an imaging study done on 10/26/23 in the [facility] Emergency Room.
This was reviewed by the [facility] Pulmonary Nodule Advisory Board and the following recommendation was made:
Recommendation: Follow up with a Pipeman
If you have any questions please do not hesitate to contact us.
Sincerely,
Oncology Nurse Navigator
[facility]
[phone]
== END 2023-11-04 15:46 | disposition home or self-care (01) | DRG 641 ==
LOC: 4 EAST ACU 22:40
PROVIDERS: Emergency Medicine; Internal Medicine; Nurse Practitioner Family; Specialist; ADMITTING PHYSICIAN Internal Medicine; ATTENDING PHYSICIAN Hospitalist; CONSULT PHYSICIAN Internal Medicine; CONSULT PHYSICIAN Internal Medicine Critical Care Medicine; CONSULT PHYSICIAN Internal Medicine Gastroenterology; CONSULT PHYSICIAN Psychiatry & Neurology Neurology; EMERGENCY PHYSICIAN Emergency Medicine; FAMILY PHYSICIAN Family Medicine; OTHER PHYSICIAN Internal Medicine Critical Care Medicine; OTHER PHYSICIAN Psychiatry & Neurology Neurology; OTHER PHYSICIAN Psychiatry & Neurology Psychiatry; OTHER PHYSICIAN Specialist
PROC: 0DB68ZX Excision of Stomach, Via Natural or Artificial Opening Endoscopic, Diagnostic (ICD-10-PCS; 2023-11-01)
PROC: 0DJD8ZZ Inspection of Lower Intestinal Tract, Via Natural or Artificial Opening Endoscopic (ICD-10-PCS; 2023-11-03)
DX: E87.1 Hypo-osmolality and hyponatremia (principal); S22.31XA Fracture of one rib, right side, initial encounter for closed fracture; E44.0 Moderate protein-calorie malnutrition; Z68.1 Body mass index [BMI] 19.9 or less, adult; I10 Essential (primary) hypertension; K21.00 Gastro-esophageal reflux disease with esophagitis, without bleeding; F17.210 Nicotine dependence, cigarettes, uncomplicated; E87.6 Hypokalemia; Z79.01 Long term (current) use of anticoagulants; D50.9 Iron deficiency anemia, unspecified; E83.42 Hypomagnesemia; R56.9 Unspecified convulsions; F10.20 Alcohol dependence, uncomplicated; I48.0 Paroxysmal atrial fibrillation; K29.70 Gastritis, unspecified, without bleeding; K29.80 Duodenitis without bleeding; K44.9 Diaphragmatic hernia without obstruction or gangrene; W19.XXXA Unspecified fall, initial encounter
CPT/HCPCS: 88305; 70450; 70551; 71250; 72100; 73080; 74176; 80048; 80051; 80053; 80306; 80307; 81003; 82077; 82533; 82550; 82607; 83540; 83550; 83690; 83735; 83935; 84100; 84295; 84300; 84443; 85014; 85018; 85025; 85027; 85652; 86140; 86850; 86900; 86901; 86920; 87502; 87811; 88342; 93005; 95816; 97163; 97167; 99291; J2916; P9016

== ENCOUNTER → 2023-11-28 10:53 | Outpatient (REF) | payer MEDICARE, OTHER, SELFPAY | LOC: RAD 10:53 | PROVIDERS: ATTENDING PHYSICIAN Surgery Vascular Surgery; FAMILY PHYSICIAN Family Medicine | DX: I73.9 Peripheral vascular disease, unspecified (principal) | CPT/HCPCS: 93922; 93925 ==

== ENCOUNTER → 2023-12-26 12:21 | Outpatient (REF) | payer MEDICARE, OTHER, SELFPAY | LOC: RAD 12:21 | PROVIDERS: ATTENDING PHYSICIAN Nurse Practitioner Family; FAMILY PHYSICIAN Family Medicine | DX: R93.89 Abnormal findings on diagnostic imaging of other specified body structures (principal); Z09 Encounter for follow-up examination after completed treatment for conditions other than malignant neoplasm; F10.10 Alcohol abuse, uncomplicated | CPT/HCPCS: 71250 ==

== ENCOUNTER → 2024-05-28 10:46 | Outpatient (REF) | payer MEDICARE, OTHER, SELFPAY | LOC: RAD 10:46 | PROVIDERS: ATTENDING PHYSICIAN Registered Nurse; FAMILY PHYSICIAN Family Medicine | DX: I73.9 Peripheral vascular disease, unspecified (principal) | CPT/HCPCS: 93922; 93925 ==

== ENCOUNTER → 2025-06-20 10:43 | Outpatient (REF) | payer MEDICARE, OTHER, SELFPAY | LOC: RAD 10:43 | PROVIDERS: ATTENDING PHYSICIAN Surgery Vascular Surgery; FAMILY PHYSICIAN Family Medicine | DX: I73.9 Peripheral vascular disease, unspecified (principal) | CPT/HCPCS: 93922; 93925 ==